=== PATIENT | female | born 1955 | race Caucasian/White ===

== ENCOUNTER → 2016-10-15 | Outpatient (CLI) | payer MEDICARE, MEDICAID | LOC: OD 11:42 | PROVIDERS: ATTEND Family Medicine | DX: E11.9 Type 2 diabetes mellitus without complications (principal) | CPT/HCPCS: 36415; 83036 ==

== ENCOUNTER → 2017-10-21 | Outpatient (CLI) | payer MEDICARE, MEDICAID ==
[2017-10-21 11:06] LABS: HEMOGLOBIN 19.5 g/dL (12.0-15.5); MEAN CORPUSCULAR HEMOGLOBIN 31.4 pg (27.0-33.4); MEAN CORPUSCULAR HGB CONC 33.2 g/dL (32.0-36.0); MEAN CORPUSCULAR VOLUME 95 fl (80-97); PLATELET COUNT 303 10^3/uL (150-450); RED CELL DISTRIBUTION WIDTH 14.8 % (11.5-14.0); WHITE BLOOD COUNT 11.1 10^3/uL (4.0-10.5)
[2017-10-21 11:09] LABS: HEMATOCRIT 58.7 % (36.0-47.0)
[2017-10-21 11:26] LABS: URINE AMPHETAMINES SCREEN NEGATIVE; URINE BARBITURATES SCREEN NEGATIVE; URINE BENZODIAZEPINES SCREEN NEGATIVE; URINE COCAINE SCREEN NEGATIVE; URINE MARIJUANA (THC) SCREEN NEGATIVE; URINE METHADONE SCREEN NEGATIVE; URINE PHENCYCLIDINE SCREEN NEGATIVE
[2017-10-21 11:44] LABS: ANION GAP 13 (5-19); BLOOD UREA NITROGEN 11 mg/dL (7-20); CALCIUM 9.8 mg/dL (8.4-10.2); CARBON DIOXIDE 32 mmol/L (22-30); CHLORIDE 97 mmol/L (98-107); CHOLESTEROL 130.87 mg/dL (0-200); GLUCOSE 144 mg/dL (75-110); POTASSIUM 4.7 mmol/L (3.6-5.0); SODIUM 141.8 mmol/L (137-145); TRIGLYCERIDES 112 mg/dL (<150)
[2017-10-21 11:54] LABS: DIRECT LDL 67 mg/dL (<100)
[2017-10-22 12:46] LABS: MICROALBUMIN RANDOM URINE 676.7 ug/mL (Not Estab.)
[2017-10-23 13:49] LABS: OXYCODONE/OXYMORPHONE UR Negative ng/mL (Cutoff=200)
== END ==
LOC: OD 09:46
PROVIDERS: ATTEND Family Medicine
DX: E11.9 Type 2 diabetes mellitus without complications (principal); E78.5 Hyperlipidemia, unspecified; I10 Essential (primary) hypertension; Z79.899 Other long term (current) drug therapy
CPT/HCPCS: 36415; 82607; 84443; 85027; 80048; 80307; 83036; 80361; 82306; 82043; 80061; G0480 ×2

== ENCOUNTER 2018-07-20 15:12 | Inpatient (IN) | payer MEDICARE, MEDICAID ==
--- NOTE | 2018-07-20 15:34 | ER Document Report ---
ED Respiratory Problem - General Stated Complaint: DIFFICULTY BREATHING Time Seen by Provider: 07/20/18 15:19 Mode of Arrival: Medic Information source: Patient Notes: Patient is a 62-year-old female with past medical history of hypertension, hyperlipidemia, yjc-zxhhjip-smbqcrmly diabetes, asthma and COPD. She presents to the emergency department today via EMS for complaint of respiratory distress and difficulty breathing. Patient reports she has had cough and congestion over the last several weeks with development of severe shortness of breath especially with ambulation. She now reports over the last couple weeks she has developed bilateral lower extremity swelling, denies any history of this before. On EMS arrival her initial O2 sats were 80% while she was sitting on the gave her a DuoNeb and Solu-Medrol 125 mg IV. Patient denies any fevers, nausea, vomiting or diarrhea. She reports her primary care doctor is Dr. Meraz. Impression TRAVEL OUTSIDE OF THE [place] IN LAST 30 DAYS: No - Related Data Allergies/Adverse Reactions: codeine Allergy (Verified 07/20/18 15:52) Latex, Natural Rubber Allergy (Verified 07/20/18 17:42) Penicillins Allergy (Verified 07/20/18 15:52) Past Medical History - General Information source: Patient - Social History Smoking Status: Current Every Day Smoker Frequency of alcohol use: None Drug Abuse: None Family History: Reviewed & Not Pertinent - Past Medical History Cardiac Medical History: Reports: Hx Hypercholesterolemia, Hx Hypertension Pulmonary Medical History: Reports: Hx Asthma, Hx COPD Endocrine Medical History: Reports: Hx Diabetes Mellitus Type 2 - Vab-frdvvyh-ciryzetif Past Surgical History: Reports: Hx Gynecologic Surgery Review of Systems - Review of Systems Constitutional: No symptoms reported. denies: Chills, Fever EENT: No symptoms reported Cardiovascular: Orthopnea, Dyspnea Respiratory: Cough, Short of breath, Sputum - White Gastrointestinal: No symptoms reported. denies: Diarrhea, Nausea, Vomiting Genitourinary: No symptoms reported Female Genitourinary: No symptoms reported Musculoskeletal: No symptoms reported Skin: No symptoms reported Hematologic/Lymphatic: No symptoms reported Neurological/Psychological: No symptoms reported Physical Exam - Vital signs Vitals: Pulse Ox 91 L 07/20/18 15:18 - Notes Notes: PHYSICAL EXAMINATION: GENERAL: Well-nourished and in no acute distress. HEAD: Atraumatic, normocephalic. EYES: Pupils equal round and reactive to light, extraocular movements intact, conjunctiva are normal. ENT: Nares patent, oropharynx clear without exudates. Moist mucous membranes. NECK: Normal range of motion, supple without lymphadenopathy LUNGS: Lung sounds diminished bilaterally with expiratory wheezes. HEART: Regular rate and rhythm without murmurs ABDOMEN: Soft, nontender, nondistended abdomen. No guarding, no rebound. No masses appreciated. Female : deferred Musculoskeletal: Normal range of motion, 3+ pitting edema. No cyanosis. NEUROLOGICAL: Cranial nerves grossly intact. Normal speech. Normal sensory, motor exams PSYCH: Normal mood, normal affect. SKIN: Warm, Dry, normal turgor, no rashes or lesions noted. Course - Re-evaluation Re-evalutation: At the time of arrival, patient currently has DuoNeb in progress that was started by EMS. Patient is already received Solu-Medrol 125 mg IV. Patient is awake, alert and able to answer questions although she is short of breath. Patient reports some improvement of her work of breathing after administration of medications by EMS. Physical examination reveals diminished lung sounds bilaterally with scattered wheezes on expiration. 3+ pitting edema to her bilateral lower extremities, patient denies any history of CHF. Will order additional breathing treatments, CBC, BMP, BNP, blood cultures, chest x-ray and EKG. Differentials include pneumonia, acute bronchitis, COPD exacerbation. CBC, BMP and BNP are relatively unremarkable. Chest x-ray reveals a right lower lobe infiltrate. Will start patient on IV Rocephin and IV azithromycin. Patient still having an oxygen requirement, nursing staff currently has patient on 5 L nasal cannula and O2 saturations are ranging between 90-91%. Will place orders for BiPAP. Hospitalist, Dr. Jericho Sevilla accepts patient for admission. Patient updated on plan of care and is agreeable to same. At the time of admission patient currently resting on the BiPAP and states she feels much improved. - Vital Signs Vital signs: Temp Pulse Resp BP Pulse Ox 26 H 131/76 H 89 L 07/20/18 19:01 07/20/18 20:00 07/20/18 20:01 - Laboratory Result Diagrams: 07/20/18 15:40 07/20/18 15:40 Laboratory results interpreted by me: 07/20/18 07/20/18 07/20/18 15:40 15:40 15:40 RBC 6.53 H Hgb 17.9 H Hct 56.1 H MCHC 31.9 L RDW 19.1 H Chloride 97 L Carbon Dioxide 33 H Glucose 130 H NT-Pro-B Natriuret Pep 945 H Discharge - Discharge Clinical Impression: Pneumonia Qualifiers: Pneumonia type: due to unspecified organism Laterality: right Lung location: lower lobe of lung Qualified Code(s): J18.1 - Lobar pneumonia, unspecified organism Condition: Stable Disposition: ADMITTED INPATIENT Admitting Provider: Hospitalist Unit Admitted: Medical Floor
[2018-07-20 16:03] LABS: ABSOLUTE LYMPHOCYTES (AUTO) 2.3 10^3/uL (0.5-4.7); ABSOLUTE MONOCYTES (AUTO) 0.8 10^3/uL (0.1-1.4); ABSOLUTE NEUT (AUTO) 4.5 10^3/uL (1.7-8.2); BASOPHILS % (AUTO) 0.5 % (0-2); EOSINOPHILS % (AUTO) 0.5 % (0-6); HEMOGLOBIN 17.9 g/dL (12.0-15.5); MEAN CORPUSCULAR HEMOGLOBIN 27.4 pg (27.0-33.4); MEAN CORPUSCULAR HGB CONC 31.9 g/dL (32.0-36.0); MEAN CORPUSCULAR VOLUME 86 fl (80-97); MONOCYTES % (AUTO) 10.9 % (3-13); PLATELET COUNT 240 10^3/uL (150-450); RED BLOOD COUNT 6.53 10^6/uL (3.72-5.28); RED CELL DISTRIBUTION WIDTH 19.1 % (11.5-14.0); SEGMENTED NEUTROPHILS % (AUTO) 58.1 % (42-78); TOTAL CELLS COUNTED % (AUTO) 100 %; WHITE BLOOD COUNT 7.7 10^3/uL (4.0-10.5)
[2018-07-20 16:06] LABS: HEMATOCRIT 56.1 % (36.0-47.0)
[2018-07-20] MEDS: ALBUTEROL SULFATE 0.083% NEB 2.5 MG/3 ML AMPUL NEB SCH ×2 (16:07→16:24)
[2018-07-20 16:27] LABS: ALANINE AMINOTRANSFERASE 17 U/L (9-52); ALBUMIN 3.6 g/dL (3.5-5.0); ALKALINE PHOSPHATASE 76 U/L (38-126); ANION GAP 10 (5-19); ASPARTATE AMINO TRANSFERASE 21 U/L (14-36); BILIRUBIN,DIRECT 0.4 mg/dL (0.0-0.4); BILIRUBIN,TOTAL 0.8 mg/dL (0.2-1.3); BLOOD UREA NITROGEN 16 mg/dL (7-20); CALCIUM 8.6 mg/dL (8.4-10.2); CARBON DIOXIDE 33 mmol/L (22-30); CHLORIDE 97 mmol/L (98-107); GLUCOSE 130 mg/dL (75-110); POTASSIUM 4.6 mmol/L (3.6-5.0); SODIUM 139.9 mmol/L (137-145); TOTAL PROTEIN 6.5 g/dL (6.3-8.2)
--- NOTE | 2018-07-20 16:38 | RADIOLOGY REPORT (SQ) ---
EXAM DESCRIPTION: CHEST SINGLE VIEW COMPLETED DATE/TIME: 07/20/2018 4:30 pm REASON FOR STUDY: shortness of breath COMPARISON: None. EXAM PARAMETERS: NUMBER OF VIEWS: One view. TECHNIQUE: Single frontal radiographic view of the chest acquired. RADIATION DOSE: NA LIMITATIONS: Positioning. Body habitus. FINDINGS: LUNGS AND PLEURA: Segmental airspace disease in the right lower lobe and middle lobe silho uetting the right heart border. Small right pleural effusion. Bandlike atelectasis or scarring in t he left lung. MEDIASTINUM AND HILAR STRUCTURES: No masses. Contour normal. HEART AND VASCULAR STRUCTURES: Heart normal in size. Normal vasculature. BONES: No acute findings. HARDWARE: None in the chest. OTHER: No other significant finding. IMPRESSION: Right lower lobe pneumonia. TECHNICAL DOCUMENTATION: JOB ID: [id number] [employer]- All Rights Reserved Reading location - IP/workstation name: [email or web address]
[2018-07-20] MEDS ORDERED: AZITHROMYCIN INJ 500 MG VIAL IV ONE (16:41)
[2018-07-20 17:50] LABS: A TYPE INFLUENZA AG NEGATIVE (NEGATIVE); B INFLUENZA AG NEGATIVE (NEGATIVE)
--- NOTE | 2018-07-20 17:54 | EKG REPORT ---
SEVERITY:- BORDERLINE ECG - SINUS TACHYCARDIA RIGHT AXIS DEVIATION BORDERLINE R WAVE PROGRESSION, ANTERIOR LEADS : Confirmed by: Alesha Farris MD 20-Jul-2018 17:54:14
[2018-07-20] MEDS ORDERED: CEFTRIAXONE 1 GM/D5W RTU 1 GM/50 ML RTUPB IV ONE (18:00)
[2018-07-20] MEDS ORDERED: HYDRALAZINE HCL INJ/PF 20 MG/1 ML SDV IV PRN (18:43)
--- NOTE | 2018-07-20 18:52 | PDOC H&P ---
History of Present Illness Admission Date/PCP: 07/20/18 18:10 OLE CARTY MD Patient complains of: SOB, leg swelling, cough History of Present Illness: NIGEL CALL is a 62 year old female with a past medical history of hypertension, hyperlipidemia, lgv-iqxzjzr-yrohjjsrc diabetes mellitus, and COPD not on home O2 who presented with increasing shortness of breath, bipedal edema and cough. Patient says that she has been having increasing shortness of breath in the past 2 months. She does have mild SOB from her COPD but is not oxygen dependent. As mentioned she says she noticed a gradual progression of her S OB in the past 2 months. She says she started developing increasing pedal edema on both legs 3 weeks ago. She reports a nonproductive cough the past month and mild orthopnea. Denies fever or chills. She denies previous diagnosis of CHF. Denies recent sick contacts. She was hypoxic when she was seen by EMS with a saturation of 80% on room air. She was initially on 4 600 nasal cannula but had persistent hypoxia hence was placed on BiPAP which improved her saturation to 93% upon encounter. She is not in distress upon my examination. Chest x-ray shows a right lower lobe pneumonia. Past Medical History Cardiac Medical History: Reports: Hyperlipidema, Hypertension Pulmonary Medical History: Reports: Asthma, Chronic Obstructive Pulmonary Disease (COPD) Endocrine Medical History: Reports: Diabetes Mellitus Type 2 - Xhi-zbuecoi-omztrtjqr Social History Smoking Status: Current Every Day Smoker Family History Family History: Reviewed & Not Pertinent Parental Family History Reviewed: Yes - no premature CAD Children Family History Reviewed: No Sibling(s) Family History Reviewed.: No Medication/Allergy Allergies/Adverse Reactions: codeine Allergy (Verified 07/20/18 15:52) Latex, Natural Rubber Allergy (Verified 07/20/18 17:42) Penicillins Allergy (Verified 07/20/18 15:52) Review of Systems All systems: reviewed and no additional remarkable complaints except as stated - as mentioned in HPI Physical Exam Vital Signs: Temp Pulse Resp BP Pulse Ox 26 H 147/82 H 91 L 07/20/18 17:01 07/20/18 17:00 07/20/18 17:01 Intake & Output 07/19/18 07/20/18 07/21/18 06:59 06:59 06:59 Weight 275 lb General appearance: PRESENT: no acute distress, well-developed, well-nourished Head exam: PRESENT: atraumatic, normocephalic Eye exam: PRESENT: conjunctiva pink, EOMI, PERRLA. ABSENT: scleral icterus Ear exam: PRESENT: normal external ear exam Mouth exam: PRESENT: moist, tongue midline Neck exam: ABSENT: carotid bruit, JVD, lymphadenopathy, thyromegaly Respiratory exam: PRESENT: rales - right to mid base. ABSENT: rhonchi, wheezes Cardiovascular exam: PRESENT: RRR. ABSENT: diastolic murmur, rubs, systolic murmur Pulses: PRESENT: normal dorsalis pedis pul GI/Abdominal exam: PRESENT: normal bowel sounds, soft. ABSENT: distended, guarding, mass, organolmegaly, rebound, tenderness Extremities exam: PRESENT: +2 edema Results Laboratory Results: 07/20/18 15:40 07/20/18 15:40 07/20/18 07/20/18 15:40 15:40 WBC 7.7 RBC 6.53 H Hgb 17.9 H Hct 56.1 H MCV 86 MCH 27.4 MCHC 31.9 L RDW 19.1 H Plt Count 240 Seg Neutrophils % 58.1 Lymphocytes % 30.0 Monocytes % 10.9 Eosinophils % 0.5 Basophils % 0.5 Absolute Neutrophils 4.5 Absolute Lymphocytes 2.3 Absolute Monocytes 0.8 Absolute Eosinophils 0.0 Absolute Basophils 0.0 Sodium 139.9 Potassium 4.6 Chloride 97 L Carbon Dioxide 33 H Anion Gap 10 BUN 16 Creatinine 0.62 Est GFR ( Amer) > 60 Est GFR (Non-Af Amer) > 60 Glucose 130 H Calcium 8.6 Total Bilirubin 0.8 AST 21 ALT 17 Alkaline Phosphatase 76 Total Protein 6.5 Albumin 3.6 07/20/18 15:40 NT-Pro-B Natriuret Pep 945 H Impressions: Chest X-Ray 07/20/18 15:27 IMPRESSION: Right lower lobe pneumonia. Assessment & Plan - Diagnosis (1) Acute respiratory failure with hypoxia Is this a current diagnosis for this admission?: Yes Plan: Secondary to community-acquired pneumonia. There is a question of a new onset CHF as patient is also presenting with increasing shortness of breath, orthopnea and bipedal edema. She is currently saturating 98% on BiPAP. (2) Pneumonia Qualifiers: Pneumonia type: due to unspecified organism Laterality: right Lung loc ation: lower lobe of lung Qualified Code(s): J18.1 - Lobar pneumonia, unspecified organism Is this a current diagnosis for this admission?: Yes Plan: Continue Rocephin and azithromycin. Will order for sputum culture. Flu testing was negative. (3) Hypertension Is this a current diagnosis for this admission?: Yes Plan: Patient takes amlodipine, losartan and hydrochlorothiazide at home. Will discontinue amlodipine due to pedal edema. - Time Time Spent: 30 to 50 Minutes
[2018-07-20] MEDS: IPRATROPIUM/ALBUTEROL 0.5-2.5 MG/3 ML AMPUL NEB SCH (21:28)
[2018-07-20] MEDS: ACETYLCYSTEINE 10% NEB 400 MG/4 ML VIAL NEB SCH (21:29)
[2018-07-20] MEDS: FUROSEMIDE INJ/PF 20 MG/2 ML SDV IV SCH (22:21)
--- NOTE | 2018-07-20 22:50 | RADIOLOGY REPORT (SQ) ---
EXAM DESCRIPTION: CT CHEST WITHOUT IV CONTRAST COMPLETED DATE/TME: 07/20/2018 18:38 CLINICAL HISTORY: 62 years Female, hypoxia,RLL PNA,r/o post obstructive PNA Comparison: None. Technique: No contrast. Coronal and sagittal reformat. This exam was performed according to our departmental dose-optimization program, which includes automated exposure control, adjustment of the mA and/or kV according to patient size and/or use of iterative reconstruction technique. [facility]: Dose Right [facility]: CareDose [facility]: Dose Right [facility]: Teradose 4D [facility]: Mogotest LIMITATIONS: None Findings: Small -moderate consolidation of the right lower lobe. Moderate right pleural effusion. Small strandy opacity of the left lower lobe may indicate atelectasis or early pneumonia. Lobulated liver contour may indicate cirrhosis. Bilateral perinephric fat stranding, nonspecific. Coronary arterial calcification. Atherosclerotic vascular disease. Unenhanced inferior neck, axillae, mediastinum, lungs, airway, lymphatics, heart, vasculature, upper abdomen, and musculoskeleton appear otherwise unremarkable. Impression: 1. Right lower lobar pneumonia. Moderate right effusion. Recommend CR/CT surveillance including at 7-12 weeks following initiation of any clinically warranted therapy. 2. Possible cirrhosis.
[2018-07-21] MEDS ORDERED: ATORVASTATIN CALCIUM 20 MG TABLET PO ONE (00:30)
[2018-07-21] MEDS: ACETYLCYSTEINE 10% NEB 400 MG/4 ML VIAL NEB SCH ×4 (01:50→21:02)
[2018-07-21] MEDS: IPRATROPIUM/ALBUTEROL 0.5-2.5 MG/3 ML AMPUL NEB SCH ×4 (01:50→21:02)
[2018-07-21] MEDS ORDERED: HYDROCHLOROTHIAZIDE 25 MG TABLET PO SCH (08:00)
[2018-07-21] MEDS: FONDAPARINUX SODIUM INJ 2.5 MG/0.5 ML DISP.SYRIN SUBCUT SCH (09:10)
[2018-07-21] MEDS ORDERED: LOSARTAN POTASSIUM 50 MG TABLET PO SCH (10:00)
[2018-07-21] MEDS: ASPIRIN 81 MG TABLET, ENT COATED PO SCH (10:23)
[2018-07-21] MEDS: FUROSEMIDE INJ/PF 20 MG/2 ML SDV IV SCH (10:28)
[2018-07-21] MEDS: AZITHROMYCIN 250 MG TABLET PO SCH (13:10)
[2018-07-21 16:22] LABS: ARTERIAL BLOOD BASE EXCESS 4.3 mmol/L; ARTERIAL BLOOD H2CO3 2.81 mmol/L (1.05-1.35); ARTERIAL BLOOD HCO3 36.5 mmol/L (20-24); ARTERIAL BLOOD O2 SATURATION 87.5 % (94-98); ARTERIAL BLOOD PH 7.21 (7.35-7.45); ARTERIAL BLOOD PO2 66.3 mmHg (80-100); ARTERIAL BLOOD TOTAL CO2 39.4 mmol/L (21-25)
[2018-07-21 16:31] LABS: ARTERIAL BLOOD FIO2 70%
[2018-07-21 16:32] LABS: ARTERIAL BLOOD PCO2 93.4 mmHg (35-45)
[2018-07-21] MEDS: CEFTRIAXONE 1 GM/D5W RTU 1 GM/50 ML RTUPB IV SCH (17:16)
[2018-07-21 18:11] LABS: ARTERIAL BLOOD BASE EXCESS 7.2 mmol/L; ARTERIAL BLOOD H2CO3 3.01 mmol/L (1.05-1.35); ARTERIAL BLOOD HCO3 39.9 mmol/L (20-24); ARTERIAL BLOOD O2 SATURATION 89.8 % (94-98); ARTERIAL BLOOD PH 7.22 (7.35-7.45); ARTERIAL BLOOD PO2 71.3 mmHg (80-100)
[2018-07-21 18:12] LABS: ARTERIAL BLOOD FIO2 70%
[2018-07-21 18:51] LABS: INTERNATIONAL RATION (INR) 1.06; PROTHROMBIN TIME 14.3 SEC (11.4-15.4)
--- NOTE | 2018-07-21 19:23 | PDOC PROGRESS REPORT ---
Subjective Progress Note for:: 07/21/18 Subjective:: NIGEL CALL is a 62 year old female with a past medical history of hypertension, hyperlipidemia, chw-adajnpf-wxpgmukee diabetes mellitus, and COPD not on home O2 who presented with increasing shortness of breath, bipedal edema and cough. She was requiring BIPAP and was found to have a right sided pneumonia and was admitted for acute hypoxic respiratory failure. Patient this morning says her breathing feels slightly better. She was off BIPAP for 4 hrs. Later this afternoon, she desaturated to low 80s. She was not in distress. She was moved to the ICU where ABG was drawn and showed acute on chronic hypercarbia with PCO of 100. She is comfortable on BIPAP. She is fully awake and well oriented x 4. No mental status changes at this time. Discussed possibilityof intubation if her breathing decompensates or if she has mental status changes. Reason For Visit: ACUTE HYPOXIC RESPIRATORY FAILURE Physical Exam Vital Signs: Temp Pulse Resp BP Pulse Ox 97.0 F 101 H 19 116/71 94 07/21/18 18:00 07/21/18 18:42 07/21/18 18:42 07/21/18 18:42 07/21/18 18:42 Intake & Output 07/20/18 07/21/18 07/22/18 06:59 06:59 06:59 Intake Total 250 786 Output Total 0 100 Balance 250 686 Weight 304 lb 10.861 oz General appearance: PRESENT: no acute distress, well-developed, well-nourished Head exam: PRESENT: atraumatic, normocephalic Eye exam: PRESENT: conjunctiva pink, EOMI, PERRLA. ABSENT: scleral icterus Ear exam: PRESENT: normal external ear exam Neck exam: ABSENT: carotid bruit, JVD, lymphadenopathy, thyromegaly Respiratory exam: PRESENT: clear to auscultation ba, rales - right base. ABSENT: rhonchi, wheezes Cardiovascular exam: PRESENT: RRR. ABSENT: diastolic murmur, rubs, systolic murmur Pulses: PRESENT: normal dorsalis pedis pul GI/Abdominal exam: PRESENT: normal bowel sounds, soft. ABSENT: distended, guarding, mass, organolmegaly, rebound, tenderness Rectal exam: PRESENT: deferred Extremities exam: PRESENT: +2 edema Neurological exam: PRESENT: alert, awake, oriented to person, oriented to place, oriented to time, oriented to situation, CN II-XII grossly intact. ABSENT: motor sensory deficit Results Laboratory Results: 07/20/18 15:40 07/20/18 15:40 07/21/18 07/21/18 15:51 17:56 Carbonic Acid 2.81 H 3.01 H HCO3/H2CO3 Ratio 12:1 13:1 ABG pH 7.21 L 7.22 L ABG pCO2 93.4 H* 100.0 H* ABG pO2 66.3 L 71.3 L ABG HCO3 36.5 H 39.9 H ABG O2 Saturation 87.5 L 89.8 L ABG Base Excess 4.3 7.2 FiO2 70% 70% 07/20/18 15:40 NT-Pro-B Natriuret Pep 945 H Impressions: Chest X-Ray 07/20/18 15:27 IMPRESSION: Right lower lobe pneumonia. Assessment & Plan - Diagnosis (1) Acute respiratory failure with hypoxia Is this a current diagnosis for this admission?: Yes Plan: Secondary to community-acquired pneumonia. 07/20: She was off BIPAP for 4 hrs. Later this afternoon, she desaturated to low 80s. She was not in distress. She was moved to the ICU where ABG was drawn and showed acute on chronic hypercarbia with PCO2 of 100. She is comfortable on BIPAP. She is fully awake and well oriented x 4. No mental status changes at this time. Discussed possibility of intubation if her breathing decompensates or if she has mental status changes. Increase BIPAP settings to 16/8/70%. Will also consult pulmonology. (2) Acute and chronic respiratory failure with hypercapnia Is this a current diagnosis for this admission?: Yes Plan: She is not on home O2 but does admit she has not been compliance with ff-up and has not been assessed for need for home O2. ABG is suggestive of chronic CO2 retention as well. (3) Pneumonia Qualifiers: Pneumonia type: due to unspecified organism Laterality: right Lung location: lower lobe of lung Qualified Code(s): J18.1 - Lobar pneumonia, unspecified organism Is this a current diagnosis for this admission?: Yes Plan: Continue Rocephin and azithromycin. Sputum culture pending. Flu testing was negative. (4) Hypertension Is this a current diagnosis for this admission?: Yes Plan: Patient takes amlodipine, losartan and hydrochlorothiazide at home. Will discontinue amlodipine due to pedal edema. (5) Pleural effusion Is this a current diagnosis for this admission?: Yes Plan: Right sided possible para pneumonic. Consulted radiology for possible thoracentesis. (6) Cirrhosis Is this a current diagnosis for this admission?: Yes - Time Time Spent with patient: 35 or more minutes
[2018-07-21] MEDS: METHYLPREDNISOLONE INJ 40 MG/1 ML SDV IV SCH (21:05)
[2018-07-21] MEDS: ATORVASTATIN CALCIUM 20 MG TABLET PO SCH (21:05)
[2018-07-21] MEDS ORDERED: DILTIAZEM HCL 30 MG TABLET PO ONE (23:59)
[2018-07-22] MEDS ORDERED: DEXTROSE 5%-WATER 250 ML with NOREPINEPHRINE BITARTRATE 4 MG IV PRN ×2 (00:01)
[2018-07-22] MEDS ORDERED: NOREPINEPHRINE BITARTRATE INJ/PF 4 MG/4 ML SDV IV ONE (00:07)
[2018-07-22] MEDS ORDERED: NORMAL SALINE 500 ML IV ONE (00:15)
[2018-07-22] MEDS ORDERED: ACETYLCYSTEINE 10% NEB 400 MG/4 ML VIAL ONE (02:19)
[2018-07-22] MEDS: ACETYLCYSTEINE 10% NEB 400 MG/4 ML VIAL NEB SCH ×4 (02:27→23:57)
[2018-07-22] MEDS: IPRATROPIUM/ALBUTEROL 0.5-2.5 MG/3 ML AMPUL NEB SCH ×4 (02:27→19:57)
[2018-07-22 04:34] LABS: ARTERIAL BLOOD BASE EXCESS 6.5 mmol/L; ARTERIAL BLOOD H2CO3 2.75 mmol/L (1.05-1.35); ARTERIAL BLOOD HCO3 38.3 mmol/L (20-24); ARTERIAL BLOOD O2 SATURATION 92.5 % (94-98); ARTERIAL BLOOD PH 7.24 (7.35-7.45); ARTERIAL BLOOD PO2 78.1 mmHg (80-100); ARTERIAL BLOOD TOTAL CO2 41.1 mmol/L (21-25)
[2018-07-22 04:35] LABS: ARTERIAL BLOOD FIO2 70%
[2018-07-22 04:36] LABS: ARTERIAL BLOOD PCO2 91.4 mmHg (35-45)
[2018-07-22 04:38] LABS: ANION GAP 6 (5-19); BLOOD UREA NITROGEN 15 mg/dL (7-20); CALCIUM 8.7 mg/dL (8.4-10.2); CARBON DIOXIDE 37 mmol/L (22-30); CHLORIDE 96 mmol/L (98-107); GLUCOSE 198 mg/dL (75-110); POTASSIUM 4.5 mmol/L (3.6-5.0); SODIUM 138.6 mmol/L (137-145)
[2018-07-22 04:51] LABS: ABSOLUTE MONOCYTES (AUTO) 0.2 10^3/uL (0.1-1.4); ABSOLUTE NEUT (AUTO) 6.6 10^3/uL (1.7-8.2); BASOPHILS % (AUTO) 0.1 % (0-2); HEMATOCRIT 52.5 % (36.0-47.0); HEMOGLOBIN 16.4 g/dL (12.0-15.5); LYMPHOCYTES % (AUTO) 12.6 % (13-45); MEAN CORPUSCULAR HEMOGLOBIN 27.3 pg (27.0-33.4); MEAN CORPUSCULAR HGB CONC 31.3 g/dL (32.0-36.0); MEAN CORPUSCULAR VOLUME 87 fl (80-97); MONOCYTES % (AUTO) 3.1 % (3-13); PLATELET COUNT 202 10^3/uL (150-450); RED BLOOD COUNT 6.03 10^6/uL (3.72-5.28); RED CELL DISTRIBUTION WIDTH 19.6 % (11.5-14.0); SEGMENTED NEUTROPHILS % (AUTO) 84.2 % (42-78); TOTAL CELLS COUNTED % (AUTO) 100 %; WHITE BLOOD COUNT 7.8 10^3/uL (4.0-10.5)
[2018-07-22] MEDS: METHYLPREDNISOLONE INJ 40 MG/1 ML SDV IV SCH ×2 (05:41→17:31)
[2018-07-22] MEDS: FONDAPARINUX SODIUM INJ 2.5 MG/0.5 ML DISP.SYRIN SUBCUT SCH (08:38)
[2018-07-22] MEDS: ASPIRIN 81 MG TABLET, ENT COATED PO SCH (09:51)
[2018-07-22] MEDS ORDERED: FUROSEMIDE INJ/PF 20 MG/2 ML SDV IV SCH (10:00)
--- NOTE | 2018-07-22 13:15 | RADIOLOGY REPORT (SQ) ---
EXAM DESCRIPTION: U/S THORACENTESIS WITH IMAGING COMPLETED DATE/TIME: 07/22/2018 12:58 pm REASON FOR STUDY: pleural effusion, hypoxia COMPARISON: CT chest 07/20/2018 Chest films 07/20/2018 LIMITATIONS: None. PROCEDURE: Procedure, risks, benefit, and alternative explained to patient who then gave written con sent. The posterior right chest wall was marked using ultrasound guidance. A time-out was called fo r correct marking verification. Chest prepped and draped using sterile technique. Local anesthesia a chieved using 7 ml of 1% lidocaine injection. A 6fr Safe-T- Centesis set was introduced into the rig ht pleural space. Fluid was aspirated. The catheter was removed and the entry site was covered with sterile bandage. No immediate complications noted. Images acquired during the procedure were stored on PACS. FINDINGS: ENTRY SITE: Posterior right chest FLUID VOLUME: 550 mL of clear straw-colored fluid FLUID ANALYSIS: Sent for testing OTHER: Fluid sent to the lab for testing. IMPRESSION: SUCCESSFUL THORACENTESIS USING ULTRASOUND GUIDANCE. COMMENT: Patient medication list reviewed: Yes- Quality ID# [id number]:Eligible professional attests to doc umenting in the medical record they obtained, updated, or reviewed the patient's current medications. TECHNICAL DOCUMENTATION: JOB ID: [id number] [employer]- All Rights Reserved Reading location - IP/workstation name: [email or web address]
[2018-07-22 13:42] LABS: FLUID TYPE PLEURAL
[2018-07-22 13:43] LABS: FLUID APPEARANCE SLIGHTLY HAZY; FLUID COLOR YELLOW; FLUID SOURCE LUNG; FLUID VISCOSITY LIQUID
--- NOTE | 2018-07-22 14:06 | RADIOLOGY REPORT (SQ) ---
EXAM DESCRIPTION: CHEST SINGLE VIEW COMPLETED DATE/TIME: 07/22/2018 1:55 pm REASON FOR STUDY: post thoracentesis COMPARISON: 07/20/2018 EXAM PARAMETERS: NUMBER OF VIEWS: One view. TECHNIQUE: Single frontal radiographic view of the chest acquired. RADIATION DOSE: NA LIMITATIONS: None. FINDINGS: LUNGS AND PLEURA: Immediate post right thoracentesis with removal of 450 mL of fluid from the right pleural space. No pneumothorax. Persistent right retrocardiac consolidation atelectasis versus pneumonia. Persistent pleural thicken ing in the right lateral costophrenic sulcus. On the left side, there is bandlike atelectasis in the mid lung, unchanged. No left pleural effusion or pneumothorax MEDIASTINUM AND HILAR STRUCTURES: No masses. Contour normal. HEART AND VASCULAR STRUCTURES: Stable marked cardiomegaly BONES: No acute findings. HARDWARE: None in the chest. OTHER: No other significant finding. IMPRESSION: No pneumothorax post right thoracentesis TECHNICAL DOCUMENTATION: JOB ID: [id number] [employer]- All Rights Reserved Reading location - IP/workstation name: [email or web address]
[2018-07-22] MEDS: AZITHROMYCIN 250 MG TABLET PO SCH (14:55)
[2018-07-22 14:58] LABS: ARTERIAL BLOOD BASE EXCESS 6.8 mmol/L; ARTERIAL BLOOD H2CO3 2.66 mmol/L (1.05-1.35); ARTERIAL BLOOD HCO3 38.1 mmol/L (20-24); ARTERIAL BLOOD O2 SATURATION 93.3 % (94-98); ARTERIAL BLOOD PH 7.25 (7.35-7.45); ARTERIAL BLOOD PO2 80.2 mmHg (80-100); ARTERIAL BLOOD TOTAL CO2 40.8 mmol/L (21-25)
[2018-07-22 15:02] LABS: ARTERIAL BLOOD FIO2 70%; ARTERIAL BLOOD PCO2 88.5 mmHg (35-45)
--- NOTE | 2018-07-22 15:31 | RADIOLOGY REPORT (SQ) ---
EXAM DESCRIPTION: CHEST SINGLE VIEW COMPLETED DATE/TIME: 07/22/2018 3:18 pm REASON FOR STUDY: post thoracentesis 2 hour post procedure film COMPARISON: 07/22/2018, 1330 hours EXAM PARAMETERS: NUMBER OF VIEWS: One view. TECHNIQUE: Single frontal radiographic view of the chest acquired. RADIATION DOSE: NA LIMITATIONS: None. FINDINGS: LUNGS AND PLEURA: 2 hours post right thoracentesis. No pneumothorax. Persistent consolidation in the right retrocardiac region atelectasis versus pneumonia with trace res idual right pleural fluid or pleural thickening. Bandlike airspace disease left lower lobe. These f indings are unchanged prior study. MEDIASTINUM AND HILAR STRUCTURES: No masses. Contour normal. HEART AND VASCULAR STRUCTURES: Stable cardiomegaly BONES: No acute findings. HARDWARE: None in the chest. OTHER: No other significant finding. IMPRESSION: No pneumothorax 2 hours post right thoracentesis Persistent right retrocardiac consolidation TECHNICAL DOCUMENTATION: JOB ID: [id number] [employer]- All Rights Reserved Reading location - IP/workstation name: [email or web address]
--- NOTE | 2018-07-22 15:50 | PDOC CONSULTATION ---
Consultation Consult Date: 07/22/18 Attending physician:: FRANCES WU Consult reason:: Acute/chronic resp failure History of Present Illness Admission Date/PCP: 07/20/18 18:10 OLE CARTY MD History of Present Illness: NIGEL CALL is a 62 year old female with increasing shortness of breath that has been progressively worse after the last 2-3 weeks cranial cough productive of yellow phlegm no hemoptysis nausea vomiting fevers or chills he has a history of hyper tension coronary artery disease and obesity. Smoking a pack a day for the last 53 years admits to being exposed large amounts of passive smoke as a child as well as an adult she has no occupational exposures to sick potential respiratory toxins. NO recent travel no angina-like chest pain sleeps in a hospital bed approximately 45 degrees rare PND rare nocturnal cough chronic edema particular over the last 3 weeks she is aware of snoring admits to restless sleep nocturia 2-3 times per night unrestful sleep and excessive daytime somnolence. Past Medical History Cardiac Medical History: Reports: Hyperlipidema, Hypertension Pulmonary Medical History: Reports: Asthma, Chronic Obstructive Pulmonary Disease (COPD) Endocrine Medical History: Reports: Diabetes Mellitus Type 2 - [id number] Social History Information Source: Patient, [facility] Records Smoking Status: Current Every Day Smoker Cigarettes Packs Per Day: 1 Number of Years Smokin Passive smoke exposure as: Both Frequency of Alcohol Use: None Drugs: None Hx Prescription Drug Abuse: No Do you have pets?: No Have you had any respiratory illnesses as a child?: No Have you been exposed to any sick contacts recently?: No Have you had any recent respiratory illnesses?: No Have you travelled outside of [place] in the past 12 months?: No Family History Parental Family History Reviewed: No Children Family History Reviewed: No Sibling(s) Family History Reviewed.: No Medication/Allergy Home Medications: Amlodipine Besylate [Norvasc 5 mg Tablet] 5 mg PO QHS 07/20/18 Aspirin [Adult Aspirin] 81 mg PO DAILY 07/20/18 Atorvastatin Calcium [Lipitor 20 mg Tablet] 20 mg PO QHS 07/20/18 Hydrochlorothiazide [Hydrodiuril 25 mg Tablet] 25 mg PO QAM 07/20/18 Losartan Potassium [Cozaar 100 mg Tablet] 100 mg PO DAILY 07/20/18 Metformin HCl [Glucophage 500 mg Tablet] 1,000 mg PO BID 07/20/18 Allergies/Adverse Reactions: codeine Allergy (Verified 07/20/18 15:52) Latex, Natural Rubber Allergy (Verified 07/20/18 17:42) Penicillins Allergy (Verified 07/20/18 15:52) Review of Systems ROS unobtainable: Due to mental status Physical Exam Vital Signs: Temp Pulse Resp BP Pulse Ox 97.5 F 99 22 H 126/74 H 92 07/22/18 10:00 07/22/18 10:00 07/22/18 10:34 07/22/18 10:34 07/22/18 10:34 Intake & Output 07/21/18 07/22/18 07/23/18 06:59 06:59 06:59 Intake Total 250 1409 1 Output Total 0 450 500 Balance 250 959 -499 Weight 138.2 kg 140.1 kg General appearance: PRESENT: cooperative, disheveled, mild distress, morbidly obese Head exam: PRESENT: atraumatic, normocephalic Eye exam: PRESENT: conjunctiva pale, EOMI. ABSENT: nystagmus Mouth exam: PRESENT: dry mucosa, neck supple, tongue midline Neck exam: ABSENT: carotid bruit, JVD, lymphadenopathy, thyromegaly, tracheal deviation, tracheostomy Respiratory exam: PRESENT: decreased breath sounds, prolonged expiratory phas, rales, rhonchi, unlabored, wheezes. ABSENT: retraction, stridor Cardiovascular exam: PRESENT: irregular rhythm Pulses: PRESENT: normal radial pulses GI/Abdominal exam: PRESENT: soft. ABSENT: tenderness Extremities exam: PRESENT: +1 edema. ABSENT: calf tenderness, clubbing, joint swelling, tenderness Musculoskeletal exam: ABSENT: deformity, dislocation Neurological exam: PRESENT: awake Psychiatric exam: PRESENT: appropriate affect Skin exam: PRESENT: dry. ABSENT: normal color Results Laboratory Results: 07/22/18 03:53 07/22/18 03:53 07/21/18 07/21/18 07/22/18 15:51 17:56 03:53 WBC 7.8 RBC 6.03 H Hgb 16.4 H Hct 52.5 H MCV 87 MCH 27.3 MCHC 31.3 L RDW 19.6 H Plt Count 202 Seg Neutrophils % 84.2 H Lymphocytes % 12.6 L Monocytes % 3.1 Eosinophils % 0.0 Basophils % 0.1 Absolute Neutrophils 6.6 Absolute Lymphocytes 1.0 Absolute Monocytes 0.2 Absolute Eosinophils 0.0 Absolute Basophils 0.0 Carbonic Acid 2.81 H 3.01 H HCO3/H2CO3 Ratio 12:1 13:1 ABG pH 7.21 L 7.22 L ABG pCO2 93.4 H* 100.0 H* ABG pO2 66.3 L 71.3 L ABG HCO3 36.5 H 39.9 H ABG O2 Saturation 87.5 L 89.8 L ABG Base Excess 4.3 7.2 FiO2 70% 70% Sodium Potassium Chloride Carbon Dioxide Anion Gap BUN Creatinine Est GFR ( Amer) Est GFR (Non-Af Amer) Glucose Calcium Magnesium 07/22/18 07/22/18 03:53 04:27 WBC RBC Hgb Hct MCV MCH MCHC RDW Plt Count Seg Neutrophils % Lymphocytes % Monocytes % Eosinophils % Basophils % Absolute Neutrophils Absolute Lymphocytes Absolute Monocytes Absolute Eosinophils Absolute Basophils Carbonic Acid 2.75 H HCO3/H2CO3 Ratio 13:1 ABG pH 7.24 L ABG pCO2 91.4 H* ABG pO2 78.1 L ABG HCO3 38.3 H ABG O2 Saturation 92.5 L ABG Base Excess 6.5 FiO2 70% Sodium 138.6 Potassium 4.5 Chloride 96 L Carbon Dioxide 37 H Anion Gap 6 BUN 15 Creatinine 0.64 Est GFR ( Amer) > 60 Est GFR (Non-Af Amer) > 60 Glucose 198 H Calcium 8.7 Magnesium 1.6 07/20/18 15:40 NT-Pro-B Natriuret Pep 945 H Impressions: Chest X-Ray 07/20/18 15:27 IMPRESSION: Right lower lobe pneumonia. Assessment & Plan - Diagnosis (1) Acute and chronic respiratory failure with hypercapnia Is this a current diagnosis for this admission?: Yes Plan: Increase inspiratory pressure try to improve minute ventilation preserved pH (2) Acute respiratory failure with hypoxia Is this a current diagnosis for this admission?: Yes Plan: Down FiO2 as tolerated (3) Hypertension Is this a current diagnosis for this admission?: Yes Plan: Stable at this time (4) Pleural effusion Is this a current diagnosis for this admission?: Yes Plan: Thoracentesis in progress (5) Pneumonia Qualifiers: Pneumonia type: due to unspecified organism Laterality: right Lung location: lower lobe of lung Qualified Code(s): J18.1 - Lobar pneumonia, unspecified organism Is this a current diagnosis for this admission?: Yes Plan: Is community-acquired specimens pending - Time Total Critical Time (Minutes): 55
[2018-07-22] MEDS: CEFTRIAXONE 1 GM/D5W RTU 1 GM/50 ML RTUPB IV SCH (17:31)
--- NOTE | 2018-07-22 18:07 | PDOC PROGRESS REPORT ---
Subjective Progress Note for:: 07/22/18 Subjective:: NIGEL CALL is a 62 year old female with a past medical history of hypertension, hyperlipidemia, jdd-jckrjla-paiwsinna diabetes mellitus, and COPD not on home O2 who presented with increasing shortness of breath, bipedal edema and cough. She was requiring BIPAP and was found to have a right sided pneumonia and was admitted for acute hypoxic respiratory failure. 07/21: Patient this morning says her breathing feels slightly better. She was off BIPAP for 4 hrs. Later this afternoon, she desaturated to low 80s. She was not in distress. She was moved to the ICU where ABG was drawn and showed acute on chronic hypercarbia with PCO of 100. She is comfortable on BIPAP. She is fully awake and well oriented x 4. No mental status changes at this time. Discussed possibility of intubation if her breathing decompensates or if she has mental status changes. 07/22: Patient's respiratory status did not deteriorate overnight. She is maintaining good saturation on BIPAP. No mental status changes despite significantly elevated PCO2. She did drop her blood pressure overnight and required low dose Levophed. Lasix was also DCed. She just had a right sided thoracenteisis and had 550 cc drained. She tolerated the procedure well. She says her SOB has slightly improved. Denies chest pain. Reason For Visit: ACUTE HYPOXIC RESPIRATORY FAILURE Physical Exam Vital Signs: Temp Pulse Resp BP Pulse Ox 98.1 F 104 H 20 92/61 L 89 L 07/22/18 16:00 07/22/18 16:00 07/22/18 16:00 07/22/18 16:00 07/22/18 16:00 Intake & Output 07/21/18 07/22/18 07/23/18 06:59 06:59 06:59 Intake Total 250 1409 225 Output Total 0 450 500 Balance 250 959 -275 Weight 304 lb 10.861 oz 308 lb 13.882 oz 308 lb 13.882 oz General appearance: PRESENT: no acute distress, well-developed, well-nourished Head exam: PRESENT: atraumatic, normocephalic Eye exam: PRESENT: conjunctiva pink, EOMI, PERRLA. ABSENT: scleral icterus Ear exam: PRESENT: normal external ear exam Mouth exam: PRESENT: moist, tongue midline Neck exam: ABSENT: carotid bruit, JVD, lymphadenopathy, thyromegaly Respiratory exam: PRESENT: rhonchi. ABSENT: rales, wheezes Cardiovascular exam: PRESENT: RRR. ABSENT: diastolic murmur, rubs, systolic murmur Pulses: PRESENT: normal dorsalis pedis pul GI/Abdominal exam: PRESENT: normal bowel sounds, soft. ABSENT: distended, guarding, mass, organolmegaly, rebound, tenderness Rectal exam: PRESENT: deferred Extremities exam: PRESENT: +2 edema Neurological exam: PRESENT: alert, awake, oriented to person, oriented to place, oriented to time, oriented to situation, CN II-XII grossly intact. ABSENT: motor sensory deficit Results Laboratory Results: 07/22/18 03:53 07/22/18 03:53 07/21/18 07/22/18 07/22/18 17:56 03:53 03:53 WBC 7.8 RBC 6.03 H Hgb 16.4 H Hct 52.5 H MCV 87 MCH 27.3 MCHC 31.3 L RDW 19.6 H Plt Count 202 Seg Neutrophils % 84.2 H Lymphocytes % 12.6 L Monocytes % 3.1 Eosinophils % 0.0 Basophils % 0.1 Absolute Neutrophils 6.6 Absolute Lymphocytes 1.0 Absolute Monocytes 0.2 Absolute Eosinophils 0.0 Absolute Basophils 0.0 Carbonic Acid 3.01 H HCO3/H2CO3 Ratio 13:1 ABG pH 7.22 L ABG pCO2 100.0 H* ABG pO2 71.3 L ABG HCO3 39.9 H ABG O2 Saturation 89.8 L ABG Base Excess 7.2 FiO2 70% Sodium 138.6 Potassium 4.5 Chloride 96 L Carbon Dioxide 37 H Anion Gap 6 BUN 15 Creatinine 0.64 Est GFR ( Amer) > 60 Est GFR (Non-Af Amer) > 60 Glucose 198 H Calcium 8.7 Magnesium 1.6 Total Protein Fluid Type Fluid Source Fluid Color Fluid Appearance Fluid Viscosity Fluid WBC Fluid RBC 07/22/18 07/22/18 07/22/18 04:27 12:25 12:25 WBC RBC Hgb Hct MCV MCH MCHC RDW Plt Count Seg Neutrophils % Lymphocytes % Monocytes % Eosinophils % Basophils % Absolute Neutrophils Absolute Lymphocytes Absolute Monocytes Absolute Eosinophils Absolute Basophils Carbonic Acid 2.75 H HCO3/H2CO3 Ratio 13:1 ABG pH 7.24 L ABG pCO2 91.4 H* ABG pO2 78.1 L ABG HCO3 38.3 H ABG O2 Saturation 92.5 L ABG Base Excess 6.5 FiO2 70% Sodium Potassium Chloride Carbon Dioxide Anion Gap BUN Creatinine Est GFR ( Amer) Est GFR (Non-Af Amer) Glucose Calcium Magnesium Total Protein Cancelled Fluid Type PLEURAL Fluid Source LUNG Fluid Color YELLOW Fluid Appearance SLIGHTLY HAZY Fluid Viscosity LIQUID Fluid WBC 468 Fluid RBC 473 07/22/18 14:40 WBC RBC Hgb Hct MCV MCH MCHC RDW Plt Count Seg Neutrophils % Lymphocytes % Monocytes % Eosinophils % Basophils % Absolute Neutrophils Absolute Lymphocytes Absolute Monocytes Absolute Eosinophils Absolute Basophils Carbonic Acid 2.66 H HCO3/H2CO3 Ratio 14:1 ABG pH 7.25 L ABG pCO2 88.5 H* ABG pO2 80.2 ABG HCO3 38.1 H ABG O2 Saturation 93.3 L ABG Base Excess 6.8 FiO2 70% Sodium Potassium Chloride Carbon Dioxide Anion Gap BUN Creatinine Est GFR ( Amer) Est GFR (Non-Af Amer) Glucose Calcium Magnesium Total Protein Fluid Type Fluid Source Fluid Color Fluid Appearance Fluid Viscosity Fluid WBC Fluid RBC 07/20/18 15:40 NT-Pro-B Natriuret Pep 945 H Impressions: Chest X-Ray 07/22/18 15:00 IMPRESSION: No pneumothorax 2 hours post right thoracentesis Persistent right retrocardiac consolidation Thoracentesis Ultrasound 07/22/18 17:32 IMPRESSION: SUCCESSFUL THORACENTESIS USING ULTRASOUND GUIDANCE. Assessment & Plan - Diagnosis (1) Hypotension Is this a current diagnosis for this admission?: Yes Plan: She did require Levophed overnight. She was weaned off Levophed this morning for a few hours but did went down to 85/40s after thoracentesis and increase in BIPAP settings. Will be cautious about increasing BIPAP settings as it may reduce venous return contributing to hypotension especially with recent throracetentesis. Suspecting cor pulmonale in a long standing COPD patient. Await echo report. (2) Acute respiratory failure with hypoxia Is this a current diagnosis for this admission?: Yes Plan: Secondary to community-acquired pneumonia with pleural effusion. 07/20: She was off BIPAP for 4 hrs. Later this afternoon, she desaturated to low 80s. She was not in distress. She was moved to the ICU where ABG was drawn and showed acute on chronic hypercarbia with PCO2 of 100. She is comfortable on BIPAP. She is fully awake and well oriented x 4. No mental status changes at this time. Discussed possibility of intubation if her breathing decompensates or if she has mental status changes. 07/21: Increase BIPAP settings to 16/8/70%. Will also consult pulmonology. 07/22: BIPAP increased to 20/8 by pulmonology. (3) Acute and chronic respiratory failure with hypercapnia Is this a current diagnosis for this admission?: Yes Plan: She is not on home O2 but does admit she has not been compliance with ff-up and has not been assessed for need for home O2. ABG is suggestive of chronic CO2 retention as well. (4) Pneumonia Qualifiers: Pneumonia type: due to unspecified organism Laterality: right Lung location: lower lobe of lung Qualified Code(s): J18.1 - Lobar pneumonia, unspecified organism Is this a current diagnosis for this admission?: Yes Plan: Continue Rocephin and azithromycin. Sputum culture pending. Flu testing was negative. (5) Hypertension Is this a current diagnosis for this admission?: Yes Plan: Patient takes amlodipine, losartan and hydrochlorothiazide at home. Discontinued amlodipine due to pedal edema. Hold antihypertensives for now due to hypotension. (6) Pleural effusion Is this a current diagnosis for this admission?: Yes Plan: Right sided possible para pneumonic. 07/21: S/P right sided thoracentesis with 550 cc drained. (7) Cirrhosis Is this a current diagnosis for this admission?: Yes Plan: CT shows possible cirrhosis. - Time Time Spent with patient: 25-34 minutes
[2018-07-22] MEDS ORDERED: NORMAL SALINE 1000 ML 1,000 ML IV PRN ×2 (19:07→19:13)
[2018-07-22] MEDS: ATORVASTATIN CALCIUM 20 MG TABLET PO SCH (21:48)
--- NOTE | 2018-07-23 00:27 | XCELERA REPORT ---
[address] [address] Transthoracic Echocardiogram Report Name: NIGEL CALL Age: 62 yrs Gender: Female : 1955 Patient Status: Inpatient Patient Location: [address] [place], [place] [address] Study Date: 07/21/2018 03:02 PM Height: 63 in Weight: 304 lb BSA: 2.3 m2 Procedure: A two-dimensional transthoracic echocardiogram with color flow and Doppler was performed. Technically limited due to patient body habitus.Poor endocardial visualisation. Reason For Study: CHF History: CHF. Ordering Physician: FRANCES WU Performed By: Gloria Rico Interpretation Summary The left ventricle is grossly normal size. Most likely no regional wall motion abnormality.No LVH.Normal LVEF greater than 65%. Doppler measurements suggest normal left ventricular diastolic function The right ventricle is not well visualized secondary to technical limitations Paradoxical septal motion is consistent with right ventricular volume overload The left atrial size is normal. Interarterial septum not well visualized and not well dopplered. Cannot comment on ASD/PFO presence. There is no mitral valve stenosis. There is a trace amount of mitral regurgitation There is mild aortic stenosis There is a peak gradient of 16 mm of Hg. There is no tricuspid stenosis. There is a moderate amount of tricuspid regurgitation There is servere pulmonary hypertension by echo RVSP is 69 to 74 mm of Hg , with RA mean of 15 to 20. The inferior vena cava appeared dilated and decreased < 50% with respiration (RAP 15-20 mmHg) Small pericardial effusion behind the right atrium MMode/2D Measurements & Calculations RVDd: 3.5 cm LVIDd: 4.2 cm FS: 40.2 % Ao root diam: 2.9 cm IVSd: 1.1 cm LVIDs: 2.5 cm EDV(Teich): 77.4 ml Ao root area: 6.4 cm2 LVPWd: 1.1 cm ESV(Teich): 22.3 ml LA dimension: 3.6 cm EF(Teich): 71.2 % Doppler Measurements & Calculations MV E max rylan: MV P1/2t max rylan: Ao V2 max: LV V1 max P.1 cm/sec 105.6 cm/sec 202.4 cm/sec 6.4 mmHg MV A max rylan: MV P1/2t: 73.9 msec Ao max PG: LV V1 max: 75.5 cm/sec MVA(P1/2t): 3.0 cm2 16.4 mmHg 126.7 cm/sec MV E/A: 1.4 MV dec slope: 418.6 cm/sec2 MV dec time: 0.25 sec PA V2 max: TR max rylan: MV P1/2t-pr_phl: 85.9 cm/sec 397.7 cm/sec 73.9 msec PA max P.0 mmHgTR max P.3 mmHg Left Ventricle The left ventricle is grossly normal size. Most likely no regional wall motion abnormality.No LVH.Normal LVEF greater than 65%. Doppler measurements suggest normal left ventricular diastolic function. Paradoxical septal motion is consistent with right ventricular volume overload. Right Ventricle The right ventricle is not well visualized secondary to technical limitations. suspect atleast moderattely enlarged RV and reduced RV systolic function. Atria Right atrium not well visualized secondary to technical limitations. The left atrial size is normal. Interarterial septum not well visualized and not well dopplered. Cannot comment on ASD/PFO presence. Mitral Valve There is no mitral valve stenosis. There is a trace amount of mitral regurgitation. Aortic Valve There is mild aortic stenosis. There is a peak gradient of 16 mm of Hg. Tricuspid Valve There is no tricuspid stenosis. There is a moderate amount of tricuspid regurgitation. There is servere pulmonary hypertension by echo. RVSP is 69 to 74 mm of Hg , with RA mean of 15 to 20. Pulmonic Valve The pulmonic valve is not well visualized. Great Vessels The aortic root is not well visualized. The inferior vena cava appeared dilated and decreased < 50% with respiration (RAP 15-20 mmHg). Effusions Small pericardial effusion behind the right atrium. : FRANCES WU > Alesha Farris
[2018-07-23] MEDS: IPRATROPIUM/ALBUTEROL 0.5-2.5 MG/3 ML AMPUL NEB SCH ×4 (02:28→19:18)
[2018-07-23] MEDS: ACETYLCYSTEINE 10% NEB 400 MG/4 ML VIAL NEB SCH ×4 (02:30→19:18)
[2018-07-23 04:08] LABS: ARTERIAL BLOOD BASE EXCESS 11.2 mmol/L; ARTERIAL BLOOD FIO2 70%; ARTERIAL BLOOD H2CO3 2.77 mmol/L (1.05-1.35); ARTERIAL BLOOD HCO3 42.8 mmol/L (20-24); ARTERIAL BLOOD O2 SATURATION 94.2 % (94-98); ARTERIAL BLOOD PH 7.29 (7.35-7.45); ARTERIAL BLOOD TOTAL CO2 45.6 mmol/L (21-25)
[2018-07-23 04:12] LABS: ARTERIAL BLOOD PCO2 92.1 mmHg (35-45)
[2018-07-23] MEDS: METHYLPREDNISOLONE INJ 40 MG/1 ML SDV IV SCH ×2 (05:05→17:28)
[2018-07-23 05:57] LABS: ABSOLUTE LYMPHOCYTES (AUTO) 1.5 10^3/uL (0.5-4.7); ABSOLUTE MONOCYTES (AUTO) 0.7 10^3/uL (0.1-1.4); ABSOLUTE NEUT (AUTO) 4.8 10^3/uL (1.7-8.2); BASOPHILS % (AUTO) 0.1 % (0-2); HEMATOCRIT 48.2 % (36.0-47.0); HEMOGLOBIN 15.4 g/dL (12.0-15.5); LYMPHOCYTES % (AUTO) 20.6 % (13-45); MEAN CORPUSCULAR HEMOGLOBIN 27.5 pg (27.0-33.4); MEAN CORPUSCULAR VOLUME 86 fl (80-97); MONOCYTES % (AUTO) 10.5 % (3-13); PLATELET COUNT 183 10^3/uL (150-450); RED BLOOD COUNT 5.61 10^6/uL (3.72-5.28); RED CELL DISTRIBUTION WIDTH 19.2 % (11.5-14.0); SEGMENTED NEUTROPHILS % (AUTO) 68.8 % (42-78); TOTAL CELLS COUNTED % (AUTO) 100 %
--- NOTE | 2018-07-23 06:45 | RADIOLOGY REPORT (SQ) ---
EXAM DESCRIPTION: XR CHEST 1 VIEW COMPLETED DATE/TME: 07/23/2018 06:00 CLINICAL HISTORY: 62 years Female, resp failure COMPARISON: One day prior. NUMBER OF VIEWS/TECHNIQUE: 1/AP FINDINGS: Moderate mixed airspace and interstitial opacities. Moderate right basilar opacity-effusion.Moderately enlarged cardiac silhouette. No pneumothorax. Stable bony thorax. IMPRESSION: No significant change.
[2018-07-23] MEDS: FONDAPARINUX SODIUM INJ 2.5 MG/0.5 ML DISP.SYRIN SUBCUT SCH (09:51)
[2018-07-23] MEDS: ASPIRIN 81 MG TABLET, ENT COATED PO SCH (09:51)
[2018-07-23] MEDS: AZITHROMYCIN 250 MG TABLET PO SCH (11:02)
[2018-07-23] MEDS ORDERED: DEXTROSE 50%-WATER SYRINGE 25 GM/50 ML DOSE IV PRN (11:30)
[2018-07-23] MEDS ORDERED: DEXTROSE 40% GEL 15 GM TUBE X 2 PO PRN (11:30)
[2018-07-23] MEDS ORDERED: DEXTROSE 40% GEL 15 GM TUBE PO PRN (11:30)
[2018-07-23] MEDS ORDERED: GLUCAGON,HUMAN RECOMB 1 MG INJ IM PRN (11:30)
[2018-07-23] MEDS ORDERED: DEXTROSE 50%-WATER SYRINGE 12.5 GM/25 ML DOSE IV PRN (11:30)
--- NOTE | 2018-07-23 14:44 | PDOC PROGRESS REPORT ---
Subjective Progress Note for:: 07/23/18 Subjective:: NIGEL CALL is a 62 year old female with a past medical history of hypertension, hyperlipidemia, pac-qbxnmfs-lkqhccnry diabetes mellitus, and COPD not on home O2 who presented with increasing shortness of breath, bipedal edema and cough. She was requiring BIPAP and was found to have a right sided pneumonia and was admitted for acute hypoxic respiratory failure. 07/21: Patient this morning says her breathing feels slightly better. She was off BIPAP for 4 hrs. Later this afternoon, she desaturated to low 80s. She was not in distress. She was moved to the ICU where ABG was drawn and showed acute on chronic hypercarbia with PCO of 100. She is comfortable on BIPAP. She is fully awake and well oriented x 4. No mental status changes at this time. Discussed possibility of intubation if her breathing decompensates or if she has mental status changes. 07/22: Patient's respiratory status did not deteriorate overnight. She is maintaining good saturation on BIPAP. No mental status changes despite significantly elevated PCO2. She did drop her blood pressure overnight and required low dose Levophed. Lasix was also DCed. She just had a right sided thoracenteisis and had 550 cc drained. She tolerated the procedure well. She says her SOB has slightly improved. Denies chest pain. 07/23: Overnight, she was resumed on low dose levophed (2 mics) per cardio recommendation for her right sided heart failure. Her BP went up to the 150 systolic and levophed was d/jose armando This morning, she is saturating well on BIPAP. Echo did show right sided failure. She denies chest pain. She says her breathing has slightly improved today. Reason For Visit: ACUTE HYPOXIC RESPIRATORY FAILURE Physical Exam Vital Signs: Temp Pulse Resp BP Pulse Ox 99.3 F 99 21 H 143/79 H 95 07/23/18 12:00 07/23/18 12:00 07/23/18 12:00 07/23/18 12:00 07/23/18 12:00 Intake & Output 07/22/18 07/23/18 07/24/18 06:59 06:59 06:59 Intake Total 1409 225 480 Output Total 450 1325 500 Balance 959 -1100 -20 Weight 308 lb 13.882 oz 310 lb 6.574 oz General appearance: PRESENT: no acute distress, well-developed, well-nourished Head exam: PRESENT: atraumatic, normocephalic Eye exam: PRESENT: conjunctiva pink, EOMI, PERRLA. ABSENT: scleral icterus Ear exam: PRESENT: normal external ear exam Mouth exam: PRESENT: moist, tongue midline Neck exam: ABSENT: carotid bruit, JVD, lymphadenopathy, thyromegaly Respiratory exam: PRESENT: clear to auscultation ba. ABSENT: rales, rhonchi, wheezes Cardiovascular exam: PRESENT: RRR. ABSENT: diastolic murmur, rubs, systolic m urmur Pulses: PRESENT: normal dorsalis pedis pul GI/Abdominal exam: PRESENT: normal bowel sounds, soft. ABSENT: distended, guarding, mass, organolmegaly, rebound, tenderness Rectal exam: PRESENT: deferred Extremities exam: PRESENT: +1 edema Neurological exam: PRESENT: alert, awake, oriented to person, oriented to place, oriented to time, oriented to situation, CN II-XII grossly intact. ABSENT: motor sensory deficit Results Laboratory Results: 07/23/18 05:47 07/22/18 03:53 07/22/18 07/22/18 07/22/18 12:25 12:25 12:25 WBC RBC Hgb Hct MCV MCH MCHC RDW Plt Count Seg Neutrophils % Lymphocytes % Monocytes % Eosinophils % Basophils % Absolute Neutrophils Absolute Lymphocytes Absolute Monocytes Absolute Eosinophils Absolute Basophils Carbonic Acid HCO3/H2CO3 Ratio ABG pH ABG pCO2 ABG pO2 ABG HCO3 ABG O2 Saturation ABG Base Excess FiO2 Magnesium Fluid Glucose 230 Fluid Total Protein 2.0 Fluid LDH 77 07/22/18 07/23/18 07/23/18 14:40 03:50 05:47 WBC 7.0 RBC 5.61 H Hgb 15.4 Hct 48.2 H MCV 86 MCH 27.5 MCHC 32.0 RDW 19.2 H Plt Count 183 Seg Neutrophils % 68.8 Lymphocytes % 20.6 Monocytes % 10.5 Eosinophils % 0.0 Basophils % 0.1 Absolute Neutrophils 4.8 Absolute Lymphocytes 1.5 Absolute Monocytes 0.7 Absolute Eosinophils 0.0 Absolute Basophils 0.0 Carbonic Acid 2.66 H 2.77 H HCO3/H2CO3 Ratio 14:1 15:1 ABG pH 7.25 L 7.29 L ABG pCO2 88.5 H* 92.1 H* ABG pO2 80.2 83.0 ABG HCO3 38.1 H 42.8 H ABG O2 Saturation 93.3 L 94.2 ABG Base Excess 6.8 11.2 FiO2 70% 70% Magnesium Fluid Glucose Fluid Total Protein Fluid LDH 07/23/18 05:47 WBC RBC Hgb Hct MCV MCH MCHC RDW Plt Count Seg Neutrophils % Lymphocytes % Monocytes % Eosinophils % Basophils % Absolute Neutrophils Absolute Lymphocytes Absolute Monocytes Absolute Eosinophils Absolute Basophils Carbonic Acid HCO3/H2CO3 Ratio ABG pH ABG pCO2 ABG pO2 ABG HCO3 ABG O2 Saturation ABG Base Excess FiO2 Magnesium 1.6 Fluid Glucose Fluid Total Protein Fluid LDH 07/20/18 15:40 NT-Pro-B Natriuret Pep 945 H Impressions: Thoracentesis Ultrasound 07/22/18 17:32 IMPRESSION: SUCCESSFUL THORACENTESIS USING ULTRASOUND GUIDANCE. Chest X-Ray 07/23/18 06:00 IMPRESSION: No significant change. Assessment & Plan - Diagnosis (1) Cor pulmonale Is this a current diagnosis for this admission?: Yes Plan: Echo does show right sided heart failure. She has long standing COPD. There is also a possibility of idiopathic pulmonary HTN. Unable to do VQ scan at this time due to large pneumonia. Will try to get more input from a tertiary pulmonary HTN specialist. (2) Hypotension Is this a current diagnosis for this admission?: Yes Plan: 05/21: She did require Levophed overnight. She was weaned off Levophed this morning for a few hours but did went down to 85/40s after thoracentesis and increase in BIPAP settings. Will be cautious about increasing BIPAP settings as it may reduce venous return contributing to hypotension especially with recent throracetentesis. Suspecting cor pulmonale in a long standing COPD patient. Await echo report. 05/22: She was resumed on low dose levophed (2 mics) per cardio recommendation for her right sided heart failure. Her BP went up to the 150 systolic and levophed was d/jose armando This morning, she is saturating well on BIPAP. Echo did show right sided failure. She denies chest pain. She says her breathing has slightly improved today. (3) Acute respiratory failure with hypoxia Is this a current diagnosis for this admission?: Yes Plan: Secondary to community-acquired pneumonia with pleural effusion. 07/20: She was off BIPAP for 4 hrs. Later this afternoon, she desaturated to low 80s. She was not in distress. She was moved to the ICU where ABG was drawn and showed acute on chronic hypercarbia with PCO2 of 100. She is comfortable on BIPAP. She is fully awake and well oriented x 4. No mental status changes at this time. Discussed possibility of intubation if her breathing decompensates or if she has mental status changes. 07/21: Increase BIPAP settings to 16/8/70%. Will also consult pulmonology. 07/22: BIPAP increased to 20/8 by pulmonology. 07/23: Keep BIPAP at 16/8. (4) Acute and chronic respiratory failure with hypercapnia Is this a current diagnosis for this admission?: Yes Plan: She is not on home O2 but does admit she has not been compliance with ff-up and has not been assessed for need for home O2. ABG is suggestive of chronic CO2 retention as well. (5) Pneumonia Qualifiers: Pneumonia type: due to unspecified organism Laterality: right Lung location: lower lobe of lung Qualified Code(s): J18.1 - Lobar pneumonia, unspecified organism Is this a current diagnosis for this admission?: Yes Plan: Continue Rocephin and azithromycin. Sputum culture pending. Flu testing was negative. (6) Hypertension Is this a current diagnosis for this admission?: Yes Plan: Patient takes amlodipine, losartan and hydrochlorothiazide at home. Discontinued amlodipine due to pedal edema. Hold antihypertensives for now due to hypotension. (7) Pleural effusion Is this a current diagnosis for this admission?: Yes Plan: Right sided possible para pneumonic. 07/21: S/P right sided thoracentesis with 550 cc drained. Pleural fluid studies pending. (8) Cirrhosis Is this a current diagnosis for this admission?: Yes Plan: CT shows possible cirrhosis. Likely from chronic passive congestion from right sided heart failure. Will also check hepatitis panel. - Time Time Spent with patient: 35 or more minutes
[2018-07-23] MEDS: INSULIN LISPRO 100 UNIT/ML 3 ML VIAL SUBCUT SCH ×2 (16:51→22:09)
--- NOTE | 2018-07-23 17:04 | RADIOLOGY REPORT (SQ) ---
EXAM DESCRIPTION: CTA CHEST COMPLETED DATE/TIME: 07/23/2018 4:43 pm REASON FOR STUDY: severe pulm HTN, r/o PE COMPARISON: 07/20/2018 TECHNIQUE: CT scan of the chest performed using helical scanning technique with dynamic intravenous contrast injection. Images reviewed with lung, soft tissue and bone windows. Reconstructed coronal and sagittal MPR images reviewed. Additional 3 dimensional post-processing performed to develop Maximal Intensity Projection images (LA P). All images stored on PACS. All CT scanners at this facility use dose modulation, iterative reconstruction, and/or weight based d osing when appropriate to reduce radiation dose to as low as reasonably achievable (ALARA). [facility]: Dose Right [facility]: CareDose [facility]: Dose Right [facility]: Teradose 4D [facility]: [place] CONTRAST TYPE AND DOSE: contrast/concentration: Isovue 350.00 mg/ml; Total Contrast Delivered: 90.0 ml; Total Saline Delivered: 77.8 ml Contrast bolus optimized for the pulmonary arteries. Not diagnostic for the aorta. RENAL FUNCTION: BUN 15 creatinine 0.64 RADIATION DOSE: CT Rad equipment meets quality standard of care and radiation dose reduction techniq ues were employed. CTDIvol: 40.4 - 41.3 mGy. DLP: 1416 mGy-cm. . LIMITATIONS: None. FINDINGS: LUNGS AND PLEURA: Moderate right pleural effusion. Small left pleural effusion. Compress gordy atelectasis in both lower lobes. AORTA AND GREAT VESSELS: No aneurysm. Contrast bolus not optimized for the aorta. HEART: Cardiomegaly. No pericardial effusion. No significant coronary artery calcifications. PULMONARY ARTERIES: No emboli visualized in the main pulmonary arteries or the segmental branches. HILAR AND MEDIASTINAL STRUCTURES: No identified masses or abnormal nodes. HARDWARE: None in the chest. UPPER ABDOMEN: No significant findings. Limited exam. THYROID AND OTHER SOFT TISSUES: No masses. No adenopathy. BONES: No acute or significant finding. 3D MIPS: Confirm above findings. OTHER: No other significant finding. IMPRESSION: 1. There is no evidence of pulmonary emboli. 2. Moderate right pleural effusion smaller left pleural effusion with atelectatic changes in both lo wer lobes. 3. Cardiomegaly. COMMENT: Quality ID # [id number]: Final reports with documentation of one or more dose reduction techniques (e.g., Automated exposure control, adjustment of the mA and/or kV according to patient size, use of iterative reconstruction technique) TECHNICAL DOCUMENTATION: JOB ID: [id number] [employer]- All Rights Reserved Reading location - IP/workstation name: [email or web address]
[2018-07-23] MEDS: CEFTRIAXONE 1 GM/D5W RTU 1 GM/50 ML RTUPB IV SCH (17:28)
[2018-07-23] MEDS: ATORVASTATIN CALCIUM 20 MG TABLET PO SCH (22:09)
[2018-07-24] MEDS: ACETYLCYSTEINE 10% NEB 400 MG/4 ML VIAL NEB SCH ×4 (02:14→20:50)
[2018-07-24] MEDS: IPRATROPIUM/ALBUTEROL 0.5-2.5 MG/3 ML AMPUL NEB SCH ×4 (02:14→20:51)
[2018-07-24 03:57] LABS: ABSOLUTE LYMPHOCYTES (AUTO) 1.6 10^3/uL (0.5-4.7); ABSOLUTE MONOCYTES (AUTO) 0.9 10^3/uL (0.1-1.4); ABSOLUTE NEUT (AUTO) 5.1 10^3/uL (1.7-8.2); BASOPHILS % (AUTO) 0.1 % (0-2); HEMATOCRIT 49.4 % (36.0-47.0); HEMOGLOBIN 15.5 g/dL (12.0-15.5); LYMPHOCYTES % (AUTO) 20.8 % (13-45); MEAN CORPUSCULAR HEMOGLOBIN 26.8 pg (27.0-33.4); MEAN CORPUSCULAR HGB CONC 31.4 g/dL (32.0-36.0); MEAN CORPUSCULAR VOLUME 86 fl (80-97); MONOCYTES % (AUTO) 11.5 % (3-13); PLATELET COUNT 167 10^3/uL (150-450); RED BLOOD COUNT 5.77 10^6/uL (3.72-5.28); RED CELL DISTRIBUTION WIDTH 19.3 % (11.5-14.0); SEGMENTED NEUTROPHILS % (AUTO) 67.6 % (42-78); TOTAL CELLS COUNTED % (AUTO) 100 %; WHITE BLOOD COUNT 7.5 10^3/uL (4.0-10.5)
[2018-07-24 04:08] LABS: BLOOD UREA NITROGEN 17 mg/dL (7-20); CALCIUM 8.9 mg/dL (8.4-10.2); GLUCOSE 197 mg/dL (75-110); POTASSIUM 4.6 mmol/L (3.6-5.0)
[2018-07-24 04:13] LABS: CHLORIDE 95 mmol/L (98-107); SODIUM 138.5 mmol/L (137-145)
[2018-07-24 04:18] LABS: ANION GAP 4 (5-19)
[2018-07-24 04:20] LABS: CARBON DIOXIDE 40 mmol/L (22-30)
[2018-07-24 05:34] LABS: ARTERIAL BLOOD BASE EXCESS 12.9 mmol/L; ARTERIAL BLOOD H2CO3 2.13 mmol/L (1.05-1.35); ARTERIAL BLOOD HCO3 41.8 mmol/L (20-24); ARTERIAL BLOOD O2 SATURATION 94.7 % (94-98); ARTERIAL BLOOD PH 7.39 (7.35-7.45); ARTERIAL BLOOD PO2 76.5 mmHg (80-100); ARTERIAL BLOOD TOTAL CO2 43.9 mmol/L (21-25)
[2018-07-24 05:35] LABS: ARTERIAL BLOOD FIO2 50%
[2018-07-24 05:38] LABS: ARTERIAL BLOOD PCO2 70.6 mmHg (35-45)
[2018-07-24] MEDS: METHYLPREDNISOLONE INJ 40 MG/1 ML SDV IV SCH ×2 (06:02→17:51)
--- NOTE | 2018-07-24 07:03 | RADIOLOGY REPORT (SQ) ---
EXAM DESCRIPTION: XR CHEST 1 VIEW COMPLETED DATE/TME: 07/24/2018 06:00 CLINICAL HISTORY: 62 years Female, resp failure COMPARISON: One day prior. NUMBER OF VIEWS/TECHNIQUE: 1/AP FINDINGS: Moderate right lower hemithoracic opacity-effusion. Moderate interstitial markings. Mildly enlarged cardiac silhouette. No pneumothorax. Stable bony thorax. IMPRESSION: Worsening includes moderate opacification of the right lower 50% hemithorax.
[2018-07-24] MEDS: INSULIN LISPRO 100 UNIT/ML 3 ML VIAL SUBCUT SCH ×4 (07:50→21:51)
[2018-07-24] MEDS: FONDAPARINUX SODIUM INJ 2.5 MG/0.5 ML DISP.SYRIN SUBCUT SCH (07:52)
[2018-07-24] MEDS: ASPIRIN 81 MG TABLET, ENT COATED PO SCH (09:39)
--- NOTE | 2018-07-24 12:01 | PDOC PROGRESS REPORT ---
Subjective Progress Note for:: 07/24/18 Subjective:: NIGEL CALL is a 62 year old female with a past medical history of hypertension, hyperlipidemia, znj-evfocmu-abkuljnty diabetes mellitus, and COPD not on home O2 who presented with increasing shortness of breath, bipedal edema and cough. She was requiring BIPAP and was found to have a right sided pneumonia and was admitted for acute hypoxic respiratory failure. 07/21: Patient this morning says her breathing feels slightly better. She was off BIPAP for 4 hrs. Later this afternoon, she desaturated to low 80s. She was not in distress. She was moved to the ICU where ABG was drawn and showed acute on chronic hypercarbia with PCO of 100. She is comfortable on BIPAP. She is fully awake and well oriented x 4. No mental status changes at this time. Discussed possibility of intubation if her breathing decompensates or if she has mental status changes. 07/22: Patient's respiratory status did not deteriorate overnight. She is maintaining good saturation on BIPAP. No mental status changes despite significantly elevated PCO2. She did drop her blood pressure overnight and required low dose Levophed. Lasix was also DCed. She just had a right sided thoracenteisis and had 550 cc drained. She tolerated the procedure well. She says her SOB has slightly improved. Denies chest pain. 07/23: Overnight, she was resumed on low dose levophed (2 mics) per cardio recommendation for her right sided heart failure. Her BP went up to the 150 systolic and levophed was d/jose armando This morning, she is saturating well on BIPAP. Echo did show right sided failure. She denies chest pain. She says her breathing has slightly improved today. 07/24: No acute event overnight. She has not required any pressor the whole day yesterday. She says her breathing is much better today. Her PCO has improved down to 70 from 100. She has been compliant with BIPAP. Denies chest pain. Reason For Visit: ACUTE HYPOXIC RESPIRATORY FAILURE Physical Exam Vital Signs: Temp Pulse Resp BP Pulse Ox 98.6 F 107 H 21 H 131/76 H 91 L 07/24/18 08:00 07/24/18 08:45 07/24/18 11:21 07/24/18 11:21 07/24/18 11:20 Intake & Output 07/23/18 07/24/18 07/25/18 06:59 06:59 06:59 Intake Total 225 1530 Output Total 1325 1825 75 Balance -1100 -295 -75 Weight 310 lb 6.574 oz 311 lb 4.683 oz General appearance: PRESENT: no acute distress, well-developed, well-nourished Head exam: PRESENT: atraumatic, normocephalic Eye exam: PRESENT: conjunctiva pink, EOMI, PERRLA. ABSENT: scleral icterus Ear exam: PRESENT: normal external ear exam Mouth exam: PRESENT: moist, tongue midline Neck exam: ABSENT: carotid bruit, JVD, lymphadenopathy, thyromegaly Respiratory exam: PRESENT: clear to auscultation ba. ABSENT: rales, rhonchi, wheezes Cardiovascular exam: PRESENT: RRR. ABSENT: diastolic murmur, rubs, systolic murmur Pulses: PRESENT: normal dorsalis pedis pul GI/Abdominal exam: PRESENT: normal bowel sounds, soft. ABSENT: distended, guarding, mass, organolmegaly, rebound, tenderness Rectal exam: PRESENT: deferred Extremities exam: PRESENT: +1 edema Neurological exam: PRESENT: alert, awake, oriented to person, oriented to place, oriented to time, oriented to situation, CN II-XII grossly intact. ABSENT: motor sensory deficit Results Laboratory Results: 07/24/18 03:43 07/24/18 03:43 07/22/18 07/22/18 07/22/18 12:25 12:25 12:25 WBC RBC Hgb Hct MCV MCH MCHC RDW Plt Count Seg Neutrophils % Lymphocytes % Monocytes % Eosinophils % Basophils % Absolute Neutrophils Absolute Lymphocytes Absolute Monocytes Absolute Eosinophils Absolute Basophils Carbonic Acid HCO3/H2CO3 Ratio ABG pH ABG pCO2 ABG pO2 ABG HCO3 ABG O2 Saturation ABG Base Excess FiO2 Sodium Potassium Chloride Carbon Dioxide Anion Gap BUN Creatinine Est GFR ( Amer) Est GFR (Non-Af Amer) Glucose Calcium Magnesium Fluid Glucose 230 Fluid Total Protein 2.0 Fluid LDH 77 07/24/18 07/24/18 07/24/18 03:43 03:43 05:21 WBC 7.5 RBC 5.77 H Hgb 15.5 Hct 49.4 H MCV 86 MCH 26.8 L MCHC 31.4 L RDW 19.3 H Plt Count 167 Seg Neutrophils % 67.6 Lymphocytes % 20.8 Monocytes % 11.5 Eosinophils % 0.0 Basophils % 0.1 Absolute Neutrophils 5.1 Absolute Lymphocytes 1.6 Absolute Monocytes 0.9 Absolute Eosinophils 0.0 Absolute Basophils 0.0 Carbonic Acid 2.13 H HCO3/H2CO3 Ratio 19:1 ABG pH 7.39 ABG pCO2 70.6 H* ABG pO2 76.5 L ABG HCO3 41.8 H ABG O2 Saturation 94.7 ABG Base Excess 12.9 FiO2 50% Sodium 138.5 Potassium 4.6 Chloride 95 L Carbon Dioxide 40 H* Anion Gap 4 L BUN 17 Creatinine 0.55 Est GFR ( Amer) > 60 Est GFR (Non-Af Amer) > 60 Glucose 197 H Calcium 8.9 Magnesium 1.7 Fluid Glucose Fluid Total Protein Fluid LDH 07/20/18 15:40 NT-Pro-B Natriuret Pep 945 H Impressions: Thoracentesis Ultrasound 07/22/18 17:32 IMPRESSION: SUCCESSFUL THORACENTESIS USING ULTRASOUND GUIDANCE. Chest/Abdomen CTA 07/23/18 16:02 IMPRESSION: 1. There is no evidence of pulmonary emboli. 2. Moderate right pleural effusion smaller left pleural effusion with atelectatic changes in both lower lobes. 3. Cardiomegaly. Chest X-Ray 07/24/18 06:00 IMPRESSION: Worsening includes moderate opacification of the right lower 50% hemithorax. Assessment & Plan - Diagnosis (1) Cor pulmonale Is this a current diagnosis for this admission?: Yes Plan: Echo does show right sided heart failure. She has long standing COPD. Possible ELZA. 07/24: Discussed with pulmonology. Her cor pulmonale is deemed likely from long standing, untreated COPD and possible ELZA. She may need Trilogy at home later. Await further cardio recommendations. (2) Hypotension Is this a current diagnosis for this admission?: Yes Plan: 05/21: She did require Levophed overnight. She was weaned off Levophed this morning for a few hours but did went down to 85/40s after thoracentesis and increase in BIPAP settings. Will be cautious about increasing BIPAP settings as it may reduce venous return contributing to hypotension especially with recent throracetentesis. Suspecting cor pulmonale in a long standing COPD patient. Await echo report. 05/22: She was resumed on low dose levophed (2 mics) per cardio recommendation for her right sided heart failure. Her BP went up to the 150 systolic and levophed was d/jose armando This morning, she is saturating well on BIPAP. Echo did show right sided failure. She denies chest pain. She says her breathing has slightly improved today. Resolved. (3) Acute respiratory failure with hypoxia Is this a current diagnosis for this admission?: Yes Plan: Secondary to community-acquired pneumonia with pleural effusion. 07/20: She was off BIPAP for 4 hrs. Later this afternoon, she desaturated to low 80s. She was not in distress. She was moved to the ICU where ABG was drawn and showed acute on chronic hypercarbia with PCO2 of 100. She is comfortable on BIPAP. She is fully awake and well oriented x 4. No mental status changes at th is time. Discussed possibility of intubation if her breathing decompensates or if she has mental status changes. 07/21: Increase BIPAP settings to 16/8/70%. Will also consult pulmonology. 07/22: BIPAP increased to 20/8 by pulmonology. 07/24: Discussed with pulm. Patient to be on BIPAP when she is asleep. May be on BIPAP 2 hrs/2 hrs off today. (4) Acute and chronic respiratory failure with hypercapnia Is this a current diagnosis for this admission?: Yes Plan: She is not on home O2 but does admit she has not been compliance with ff-up and has not been assessed for need for home O2. ABG is suggestive of chronic CO2 retention as well. (5) Pneumonia Qualifiers: Pneumonia type: due to unspecified organism Laterality: right Lung location: lower lobe of lung Qualified Code(s): J18.1 - Lobar pneumonia, u nspecified organism Is this a current diagnosis for this admission?: Yes Plan: Continue Rocephin and azithromycin. Sputum culture pending. Flu testing was negative. (6) Hypertension Is this a current diagnosis for this admission?: Yes Plan: Patient takes amlodipine, losartan and hydrochlorothiazide at home. Discontinued amlodipine due to pedal edema. Held antihypertensives due to recent hypotension. (7) Pleural effusion Is this a current diagnosis for this admission?: Yes Plan: Right sided possible para pneumonic. 07/21: S/P right sided thoracentesis with 550 cc drained. Pleural fluid studies are consistent with transudative effusion. (8) Cirrhosis Is this a current diagnosis for this admission?: Yes Plan: CT shows possible cirrhosis. Likely from chronic passive congestion from right sided heart failure. Will also check hepatitis panel. - Time Time Spent with patient: 35 or more minutes
--- NOTE | 2018-07-24 14:12 | PDOC CONSULTATION ---
Consultation Consult Date: 07/24/18 Consult reason:: Pulmonary hypertension History of Present Illness Admission Date/PCP: 07/20/18 18:10 OLE CARTY MD History of Present Illness: NIGEL CALL is a 62 year old female With past medical history of diabetes, hypertension, morbid obesity, hyperlipidemia who was admitted few days ago with complaints of worsening shortness of breath with swelling of lower extremities and cough and diagnosed with right lower lobe pneumonia. She also had a pulmonary evaluation and had r ight thoracocentesis done for a right pleural effusion. Patient claims that she feels better since she was admitted. She lives with her son and claims shortness of breath at baseline which was getting worse over the past couple of months. She denies any history of chest pain or palpitations or dizziness. She is not very active at home but able to ambulate inside the house. She smokes a pack of cigarettes a day. She denies any history of sleep apnea but does give a history of daytime sleepiness and nighttime snoring. She denies any family history of coronary artery disease. She had a CAT scan of the chest done on 07/23/2018 which revealed moderate right pleural effusion. Past Medical History Cardiac Medical History: Reports: Hyperlipidema, Hypertension Pulmonary Medical History: Reports: Asthma, Chronic Obstructive Pulmonary Disease (COPD) Endocrine Medical History: Reports: Diabetes Mellitus Type 2 - [id number]-mfrgahkir, Obesity Social History Smoking Status: Current Every Day Smoker Cigarettes Packs Per Day: 1 Number of Years Smokin Frequency of Alcohol Use: None Drugs: None Hx Prescription Drug Abuse: No Family History Family History: Reviewed & Not Pertinent Parental Family History Reviewed: Yes Children Family History Reviewed: Unknown Sibling(s) Family History Reviewed.: Yes Medication/Allergy Home Medications: Amlodipine Besylate [Norvasc 5 mg Tablet] 5 mg PO QHS 07/20/18 Aspirin [Adult Aspirin] 81 mg PO DAILY 07/20/18 Atorvastatin Calcium [Lipitor 20 mg Tablet] 20 mg PO QHS 07/20/18 Hydrochlorothiazide [Hydrodiuril 25 mg Tablet] 25 mg PO QAM 07/20/18 Losartan Potassium [Cozaar 100 mg Tablet] 100 mg PO DAILY 07/20/18 Metformin HCl [Glucophage 500 mg Tablet] 1,000 mg PO BID 07/20/18 Allergies/Adverse Reactions: codeine Allergy (Verified 07/20/18 15:52) Latex, Natural Rubber Allergy (Verified 07/20/18 17:42) Penicillins Allergy (Verified 07/20/18 15:52) Review of Systems Respiratory: PRESENT: cough, dyspnea Physical Exam Vital Signs: Temp Pulse Resp BP Pulse Ox 99.1 F 106 H 19 131/76 H 89 L 07/24/18 12:00 07/24/18 13:50 07/24/18 13:50 07/24/18 12:00 07/24/18 13:50 Intake & Output 07/23/18 07/24/18 07/25/18 06:59 06:59 06:59 Intake Total 225 1530 Output Total 1325 1825 450 Balance -1100 -295 -450 Weight 140.8 kg 141.2 kg General appearance: PRESENT: mild distress Head exam: PRESENT: atraumatic, normocephalic Neck exam: PRESENT: full ROM Respiratory exam: PRESENT: other - Bilateral air entry decreased at bases especially on the right side with occasional scattered crepitus. Cardiovascular exam: PRESENT: RRR, +S1, +S2 Pulses: PRESENT: normal radial pulses, normal dorsalis pedis pul, +2 pedal pulses bilateral Extremities exam: PRESENT: full ROM Musculoskeletal exam: PRESENT: full ROM Neurological exam: PRESENT: alert, awake, oriented to person, oriented to place, oriented to time, oriented to situation Results Laboratory Results: 07/24/18 03:43 07/24/18 03:43 07/24/18 07/24/18 07/24/18 03:43 03:43 05:21 WBC 7.5 RBC 5.77 H Hgb 15.5 Hct 49.4 H MCV 86 MCH 26.8 L MCHC 31.4 L RDW 19.3 H Plt Count 167 Seg Neutrophils % 67.6 Lymphocytes % 20.8 Monocytes % 11.5 Eosinophils % 0.0 Basophils % 0.1 Absolute Neutrophils 5.1 Absolute Lymphocytes 1.6 Absolute Monocytes 0.9 Absolute Eosinophils 0.0 Absolute Basophils 0.0 Carbonic Acid 2.13 H HCO3/H2CO3 Ratio 19:1 ABG pH 7.39 ABG pCO2 70.6 H* ABG pO2 76.5 L ABG HCO3 41.8 H ABG O2 Saturation 94.7 ABG Base Excess 12.9 FiO2 50% Sodium 138.5 Potassium 4.6 Chloride 95 L Carbon Dioxide 40 H* Anion Gap 4 L BUN 17 Creatinine 0.55 Est GFR ( Amer) > 60 Est GFR (Non-Af Amer) > 60 Glucose 197 H Calcium 8.9 Magnesium 1.7 07/20/18 15:40 NT-Pro-B Natriuret Pep 945 H Impressions: Thoracentesis Ultrasound 07/22/18 17:32 IMPRESSION: SUCCESSFUL THORACENTESIS USING ULTRASOUND GUIDANCE. Chest/Abdomen CTA 07/23/18 16:02 IMPRESSION: 1. There is no evidence of pulmonary emboli. 2. Moderate right pleural effusion smaller left pleural effusion with atelectatic changes in both lower lobes. 3. Cardiomegaly. Chest X-Ray 07/24/18 06:00 IMPRESSION: Worsening includes moderate opacification of the right lower 50% hemithorax. Assessment & Plan - Diagnosis (1) Acute and chronic respiratory failure with hypercapnia Is this a current diagnosis for this admission?: Yes (3) Hypertension Is this a current diagnosis for this admission?: Yes (5) Pneumonia Qualifiers: Pneumonia type: due to unspecified organism Laterality: right Lung location: lower lobe of lung Qualified Code(s): J18.1 - Lobar pneumonia, unspecified organism Is this a current diagnosis for this admission?: Yes - Notes Notes: Reviewed EKG, telemetry, imaging tests. Morbidly obese patient with multiple comorbidities admitted with right lower lobe pneumonia with right pleural effusion status post thoracocentesis. Echocardiogram reviewed and showed normal EF with right ventricle not well visualized but signs of RV volume overload noted. Right ventricular systolic pressure based on TR jet estimated at 69-74 mmHg suggestive of pulmonary hypertension. Sign of elevated mean right atrial p ressure noted per echocardiogram result. Patient was on pressor support for a short period but is off pressors now. Agree with continued antibiotic therapy for treatment of her right lower lobe pneumonia and recommend consideration for lateral decubitus x-ray of the chest to rule out increasing right pleural effusion that may require repeat thoracocentesis. No roc anginal symptoms at this time to warrant any ischemia workup but should be considered as an outpatient at some point. Regarding her pulmonary hypertension she will need a right heart cath at some point to directly estimate her mean pulmonary artery pressure and likely vasodilator test to classify her pulmonary hypertension and accordingly figure out if she is going to be a candidate for vasodilator therapy at some point. It is likely that her pulmonary hypertension is mixed. Patient agrees to follow with Dr. Farris as an outpatient for scheduling right heart catheterization when she is recovered from her pneumonia. She should also be considered for an outpatient sleep study to rule out obstructive sleep apnea. Please call us if any questions but otherwise schedule outpatient appointment with Dr. Farris upon discharge. - Time Time Spent: 50 to 70 Minutes
[2018-07-24] MEDS: AZITHROMYCIN 250 MG TABLET PO SCH (14:30)
--- NOTE | 2018-07-24 15:37 | RADIOLOGY REPORT (SQ) ---
EXAM DESCRIPTION: CHEST 2 VIEWS COMPLETED DATE/TIME: 07/24/2018 3:19 pm REASON FOR STUDY: lateral decubitus for reassess of pleural eff COMPARISON: AP chest 07/24/2018 CT chest 07/23/2018 CT chest 07/20/2018 EXAM PARAMETERS: NUMBER OF VIEWS: two views TECHNIQUE: Right decubitus view, left decubitus view of the chest RADIATION DOSE: NA LIMITATIONS: none FINDINGS: LUNGS AND PLEURA: Persistent dense consolidation throughout the right lower lobe. Trace freely layering right pleural effusion Left lung clear. No left pleural fluid. No right or left pneumothorax MEDIASTINUM AND HILAR STRUCTURES: No masses or contour abnormalities. HEART AND VASCULAR STRUCTURES: Stable cardiomegaly BONES: No acute findings. HARDWARE: None in the chest. OTHER: No other significant finding. IMPRESSION: Persistent collapse and consolidation right lower lobe with trace right pleural effusion TECHNICAL DOCUMENTATION: JOB ID: [id number] [employer]- All Rights Reserved Reading location - IP/workstation name: [email or web address]
[2018-07-24] MEDS: CEFTRIAXONE 1 GM/D5W RTU 1 GM/50 ML RTUPB IV SCH (17:51)
[2018-07-24] MEDS: ATORVASTATIN CALCIUM 20 MG TABLET PO SCH (21:45)
[2018-07-24] MEDS: ACETAZOLAMIDE 250 MG TABLET PO SCH (21:45)
[2018-07-25] MEDS: ACETYLCYSTEINE 10% NEB 400 MG/4 ML VIAL NEB SCH ×4 (02:46→20:02)
[2018-07-25] MEDS: IPRATROPIUM/ALBUTEROL 0.5-2.5 MG/3 ML AMPUL NEB SCH ×4 (02:46→20:02)
[2018-07-25] MEDS: METHYLPREDNISOLONE INJ 40 MG/1 ML SDV IV SCH ×2 (05:28→17:17)
[2018-07-25] MEDS: FONDAPARINUX SODIUM INJ 2.5 MG/0.5 ML DISP.SYRIN SUBCUT SCH (07:43)
[2018-07-25] MEDS: INSULIN LISPRO 100 UNIT/ML 3 ML VIAL SUBCUT SCH ×4 (07:43→22:57)
[2018-07-25 09:29] LABS: ARTERIAL BLOOD BASE EXCESS 8.4 mmol/L; ARTERIAL BLOOD H2CO3 2.21 mmol/L (1.05-1.35); ARTERIAL BLOOD HCO3 37.9 mmol/L (20-24); ARTERIAL BLOOD O2 SATURATION 91.9 % (94-98); ARTERIAL BLOOD PH 7.33 (7.35-7.45); ARTERIAL BLOOD PO2 68.9 mmHg (80-100); ARTERIAL BLOOD TOTAL CO2 40.2 mmol/L (21-25)
[2018-07-25 09:31] LABS: ARTERIAL BLOOD FIO2 5L
[2018-07-25 09:32] LABS: ARTERIAL BLOOD PCO2 73.4 mmHg (35-45)
[2018-07-25] MEDS: ASPIRIN 81 MG TABLET, ENT COATED PO SCH (10:06)
[2018-07-25] MEDS: ACETAZOLAMIDE 250 MG TABLET PO SCH ×2 (10:06→22:51)
[2018-07-25] MEDS: CALCIUM CARBONATE 500 MG TAB.CHEW PO PRN (10:11)
[2018-07-25 10:14] LABS: ABSOLUTE MONOCYTES (AUTO) 0.4 10^3/uL (0.1-1.4); ABSOLUTE NEUT (AUTO) 5.8 10^3/uL (1.7-8.2); BASOPHILS % (AUTO) 0.2 % (0-2); HEMATOCRIT 50.5 % (36.0-47.0); HEMOGLOBIN 15.9 g/dL (12.0-15.5); LYMPHOCYTES % (AUTO) 13.5 % (13-45); MEAN CORPUSCULAR HEMOGLOBIN 27.2 pg (27.0-33.4); MEAN CORPUSCULAR HGB CONC 31.4 g/dL (32.0-36.0); MEAN CORPUSCULAR VOLUME 87 fl (80-97); MONOCYTES % (AUTO) 5.3 % (3-13); PLATELET COUNT 176 10^3/uL (150-450); RED BLOOD COUNT 5.82 10^6/uL (3.72-5.28); RED CELL DISTRIBUTION WIDTH 19.1 % (11.5-14.0); TOTAL CELLS COUNTED % (AUTO) 100 %; WHITE BLOOD COUNT 7.1 10^3/uL (4.0-10.5)
[2018-07-25 10:31] LABS: ANION GAP 6 (5-19); BLOOD UREA NITROGEN 17 mg/dL (7-20); CALCIUM 8.9 mg/dL (8.4-10.2); CARBON DIOXIDE 37 mmol/L (22-30); CHLORIDE 96 mmol/L (98-107); GLUCOSE 268 mg/dL (75-110); POTASSIUM 4.6 mmol/L (3.6-5.0); SODIUM 139.3 mmol/L (137-145)
[2018-07-25] MEDS: AZITHROMYCIN 250 MG TABLET PO SCH (11:46)
--- NOTE | 2018-07-25 14:49 | PDOC PROGRESS REPORT ---
Subjective Progress Note for:: 07/25/18 Subjective:: NIGEL CALL is a 62 year old female with a past medical history of hypertension, hyperlipidemia, els-dplucrt-sepqryebz diabetes mellitus, and COPD not on home O2 who presented with increasing shortness of breath, bipedal edema and cough. She was requiring BIPAP and was found to have a right sided pneumonia and was admitted for acute hypoxic respiratory failure. 07/21: Patient this morning says her breathing feels slightly better. She was off BIPAP for 4 hrs. Later this afternoon, she desaturated to low 80s. She was not in distress. She was moved to the ICU where ABG was drawn and showed acute on chronic hypercarbia with PCO of 100. She is comfortable on BIPAP. She is fully awake and well oriented x 4. No mental status changes at this time. Discussed possibility of intubation if her breathing decompensates or if she has mental status changes. 07/22: Patient's respiratory status did not deteriorate overnight. She is maintaining good saturation on BIPAP. No mental status changes despite significantly elevated PCO2. She did drop her blood pressure overnight and required low dose Levophed. Lasix was also DCed. She just had a right sided thoracenteisis and had 550 cc drained. She tolerated the procedure well. She says her SOB has slightly improved. Denies chest pain. 07/23: Overnight, she was resumed on low dose levophed (2 mics) per cardio recommendation for her right sided heart failure. Her BP went up to the 150 systolic and levophed was d/jose armando This morning, she is saturating well on BIPAP. Echo did show right sided failure. She denies chest pain. She says her breathing has slightly improved today. 07/24: She has not required any pressor the whole day yesterday. She says her breathing is much better today. Her PCO has improved down to 70 from 100. She has been compliant with BIPAP. Denies chest pain. 07/25: No acute event overnight. She says she is still SOB but continues to improve and feels better. Denies chest pain. She will be continued on BIPAP 2 hrs on/2 hrs off. Reason For Visit: ACUTE HYPOXIC RESPIRATORY FAILURE Physical Exam Vital Signs: Temp Pulse Resp BP Pulse Ox 98.6 F 101 H 16 135/70 H 92 07/25/18 08:46 07/25/18 09:19 07/25/18 09:19 07/25/18 08:46 07/25/18 09:19 Intake & Output 07/24/18 07/25/18 07/26/18 06:59 06:59 06:59 Intake Total 1530 1050 458 Output Total 0316 8345 900 Balance -295 -1525 -442 Weight 311 lb 4.683 oz 309 lb 15.519 oz General appearance: PRESENT: no acute distress, well-developed, well-nourished Head exam: PRESENT: atraumatic, normocephalic Eye exam: PRESENT: conjunctiva pink, EOMI, PERRLA. ABSENT: scleral icterus Ear exam: PRESENT: normal external ear exam Mouth exam: PRESENT: moist, tongue midline Neck exam: ABSENT: carotid bruit, JVD, lymphadenopathy, thyromegaly Respiratory exam: PRESENT: rales, rhonchi. ABSENT: wheezes Cardiovascular exam: PRESENT: RRR. ABSENT: diastolic murmur, rubs, systolic murmur Pulses: PRESENT: normal dorsalis pedis pul GI/Abdominal exam: PRESENT: normal bowel sounds, soft. ABSENT: distended, guarding, mass, organolmegaly, rebound, tenderness Rectal exam: PRESENT: deferred Extremities exam: PRESENT: +2 edema Neurological exam: PRESENT: alert, awake, oriented to person, oriented to place, oriented to time, oriented to situation, CN II-XII grossly intact. ABSENT: motor sensory deficit Results Laboratory Results: 07/25/18 10:02 07/25/18 10:02 07/25/18 07/25/18 07/25/18 09:10 10:02 10:02 WBC 7.1 RBC 5.82 H Hgb 15.9 H Hct 50.5 H MCV 87 MCH 27.2 MCHC 31.4 L RDW 19.1 H Plt Count 176 Seg Neutrophils % 81.0 H Lymphocytes % 13.5 Monocytes % 5.3 Eosinophils % 0.0 Basophils % 0.2 Absolute Neutrophils 5.8 Absolute Lymphocytes 1.0 Absolute Monocytes 0.4 Absolute Eosinophils 0.0 Absolute Basophils 0.0 Carbonic Acid 2.21 H HCO3/H2CO3 Ratio 17:1 ABG pH 7.33 L ABG pCO2 73.4 H* ABG pO2 68.9 L ABG HCO3 37.9 H ABG O2 Saturation 91.9 L ABG Base Excess 8.4 FiO2 5L Sodium 139.3 Potassium 4.6 Chloride 96 L Carbon Dioxide 37 H Anion Gap 6 BUN 17 Creatinine 0.63 Est GFR ( Amer) > 60 Est GFR (Non-Af Amer) > 60 Glucose 268 H Calcium 8.9 07/20/18 15:40 NT-Pro-B Natriuret Pep 945 H Impressions: Thoracentesis Ultrasound 07/22/18 17:32 IMPRESSION: SUCCESSFUL THORACENTESIS USING ULTRASOUND GUIDANCE. Chest/Abdomen CTA 07/23/18 16:02 IMPRESSION: 1. There is no evidence of pulmonary emboli. 2. Moderate right pleural effusion smaller left pleural effusion with atelectatic changes in both lower lobes. 3. Cardiomegaly. Chest X-Ray 07/24/18 12:55 IMPRESSION: Persistent collapse and consolidation right lower lobe with trace right pleural effusion Assessment & Plan - Diagnosis (1) Cor pulmonale Is this a current diagnosis for this admission?: Yes Plan: Echo does show right sided heart failure. She has long standing COPD. Possible ELZA. 07/24: Discussed with pulmonology. Her cor pulmonale is deemed likely from long standing, untreated COPD and possible ELZA. She may need Trilogy at home later. 07/25: Appreciate cardio recommendation. Patient will need right sided heart cath later and possible vasodilatory testing. This will be arranged when she follows up with cardio and pulm. (2) Hypotension Is this a current diagnosis for this admission?: Yes Plan: 05/21: She did require Levophed overnight. She was weaned off Levophed this morning for a few hours but did went down to 85/40s after thoracentesis and increase in BIPAP settings. Will be cautious about increasing BIPAP settings as it may reduce venous return contributing to hypotension especially with recent throracentesis. Hypotension is likely multifactorial from right sided heart failure, diuresis, increase in BIPAP settings and thoracentesis. Suspecting cor pulmonale in a long standing COPD patient. Await echo report. 05/22: She was resumed on low dose levophed (2 mics) per cardio recommendation for her right sided heart failure. Her BP went up to the 150 systolic and levophed was d/jose armando This morning, she is saturating well on BIPAP. Echo did show right sided failure. She denies chest pain. She says her breathing has slightly improved today. Resolved. (3) Acute respiratory failure with hypoxia Is this a current diagnosis for this admission?: Yes Plan: Secondary to community-acquired pneumonia with pleural effusion. 07/20: She was off BIPAP for 4 hrs. Later this afternoon, she desaturated to low 80s. She was not in distress. She was moved to the ICU where ABG was drawn and showed acute on chronic hypercarbia with PCO2 of 100. She is comfortable on BIPAP. She is fully awake and well oriented x 4. No mental status changes at this time. Discussed possibility of intubation if her breathing decompensates or if she has mental status changes. 07/21: Increase BIPAP settings to 16/8/70%. Will also consult pulmonology. 07/22: BIPAP increased to 20/8 by pulmonology. 07/24: Discussed with pulm. Patient to be on BIPAP when she is asleep. 07/25: Noted ABG today. Still hypercerbic although not as worse as when she first came in. BIPAP 2 hrs/2 hrs off today. BIPAP during sleep. (4) Acute and chronic respiratory failure with hypercapnia Is this a current diagnosis for this admission?: Yes Plan: She is not on home O2 but does admit she has not been compliance with ff-up and has not been assessed for need for home O2. ABG is suggestive of chronic CO2 retention as well. (5) Pneumonia Qualifiers: Pneumonia type: due to unspecified organism Laterality: right Lung location: lower lobe of lung Qualified Code(s): J18.1 - Lobar pneumonia, unspecified organism Is this a current diagnosis for this admission?: Yes Plan: Continue Rocephin and azithromycin. Sputum culture pending. Flu testing was negative. 07/25: Repeat chest x-ray shows persistent consolidation. May need repeat imaging in the next 2 days to reassess consolidation. (6) Hypertension Is this a current diagnosis for this admission?: Yes Plan: Patient takes amlodipine, losartan and hydrochlorothiazide at home. Discontinued amlodipine due to pedal edema. Held antihypertensives due to recent hypotension. (7) Pleural effusion Is this a current diagnosis for this admission?: Yes Plan: Right sided possible para pneumonic. 07/21: S/P right sided thoracentesis with 550 cc drained. Pleural fluid studies are consistent with transudative effusion. (8) Cirrhosis Is this a current diagnosis for this admission?: Yes Plan: CT shows possible cirrhosis. Likely from chronic passive congestion from right sided heart failure. Hepatitis panel pending. - Time Time Spent with patient: 25-34 minutes
[2018-07-25] MEDS: CEFTRIAXONE 1 GM/D5W RTU 1 GM/50 ML RTUPB IV SCH (17:18)
[2018-07-25] MEDS: ATORVASTATIN CALCIUM 20 MG TABLET PO SCH (22:52)
[2018-07-26] MEDS: ACETYLCYSTEINE 10% NEB 400 MG/4 ML VIAL NEB SCH ×4 (02:03→21:28)
[2018-07-26] MEDS: IPRATROPIUM/ALBUTEROL 0.5-2.5 MG/3 ML AMPUL NEB SCH ×4 (02:03→21:28)
[2018-07-26] MEDS: METHYLPREDNISOLONE INJ 40 MG/1 ML SDV IV SCH ×2 (05:25→17:11)
[2018-07-26] MEDS: INSULIN LISPRO 100 UNIT/ML 3 ML VIAL SUBCUT SCH ×4 (08:22→22:03)
[2018-07-26] MEDS: FONDAPARINUX SODIUM INJ 2.5 MG/0.5 ML DISP.SYRIN SUBCUT SCH (08:22)
[2018-07-26] MEDS: ASPIRIN 81 MG TABLET, ENT COATED PO SCH (09:51)
[2018-07-26] MEDS: ACETAZOLAMIDE 250 MG TABLET PO SCH (09:51)
[2018-07-26] MEDS: AZITHROMYCIN 250 MG TABLET PO SCH (12:54)
[2018-07-26 14:38] LABS: HEPATITIS A AB IGM Negative (Negative); HEPATITIS B CORE AB IGM Negative (Negative); HEPATITS B SURFACE ANTIGEN Negative (Negative)
[2018-07-26 14:51] LABS: HEPATITIS C VIRUS ANTIBODY <0.1 s/co ratio (0.0-0.9)
--- NOTE | 2018-07-26 15:58 | PDOC PROGRESS REPORT ---
Subjective Progress Note for:: 07/26/18 Subjective:: NIGEL CALL is a 62 year old female with a past medical history of hypertension, hyperlipidemia, [id number]-[id number] diabetes mellitus, and COPD not on home O2 who presented with increasing shortness of breath, bipedal edema and cough. She was requiring BIPAP and was found to have a right sided pneumonia and was admitted for acute hypoxic respiratory failure. 07/21: Patient this morning says her breathing feels slightly better. She was off BIPAP for 4 hrs. Later this afternoon, she desaturated to low 80s. She was not in distress. She was moved to the ICU where ABG was drawn and showed acute on chronic hypercarbia with PCO of 100. She is comfortable on BIPAP. She is fully awake and well oriented x 4. No mental status changes at this time. Discussed possibility of intubation if her breathing decompensates or if she has mental status changes. 07/22: Patient's respiratory status did not deteriorate overnight. She is maintaining good saturation on BIPAP. No mental status changes despite significantly elevated PCO2. She did drop her blood pressure overnight and required low dose Levophed. Lasix was also DCed. She just had a right sided thoracenteisis and had 550 cc drained. She tolerated the procedure well. She says her SOB has slightly improved. Denies chest pain. 07/23: Overnight, she was resumed on low dose levophed (2 mics) per cardio recommendation for her right sided heart failure. Her BP went up to the 150 systolic and levophed was d/jose armando This morning, she is saturating well on BIPAP. Echo did show right sided failure. She denies chest pain. She says her breathing has slightly improved today. 07/24: She has not required any pressor the whole day yesterday. She says her breathing is much better today. Her PCO2 has improved down to 70 from 100. She has been compliant with BIPAP. Denies chest pain. 07/25: She says she is still SOB but continues to improve and feels better. Denies chest pain. 07/26: No acute event overnight. She continues to improve albeit still has SOB. She will be continued on BIPAP 2 hrs on/2 hrs off. Reason For Visit: ACUTE HYPOXIC RESPIRATORY FAILURE Physical Exam Vital Signs: Temp Pulse Resp BP Pulse Ox 98.2 F 103 H 18 105/70 92 07/26/18 15:35 07/26/18 15:35 07/26/18 15:35 07/26/18 15:35 07/26/18 15:35 Intake & Output 07/25/18 07/26/18 07/27/18 06:59 06:59 06:59 Intake Total 1050 1866 Output Total 2572 0805 Balance -1525 -609 Weight 309 lb 15.519 oz 307 lb 15.772 oz General appearance: PRESENT: no acute distress, well-developed, well-nourished Head exam: PRESENT: atraumatic, normocephalic Eye exam: PRESENT: conjunctiva pink, EOMI, PERRLA. ABSENT: scleral icterus Ear exam: PRESENT: normal external ear exam Mouth exam: PRESENT: moist, tongue midline Neck exam: ABSENT: carotid bruit, JVD, lymphadenopathy, thyromegaly Respiratory exam: PRESENT: rales, rhonchi. ABSENT: wheezes Cardiovascular exam: PRESENT: RRR. ABSENT: diastolic murmur, rubs, systolic murmur Pulses: PRESENT: normal dorsalis pedis pul GI/Abdominal exam: PRESENT: normal bowel sounds, soft. ABSENT: distended, guarding, mass, organolmegaly, rebound, tenderness Extremities exam: PRESENT: +2 edema Neurological exam: PRESENT: alert, awake, oriented to person, oriented to place, oriented to time, oriented to situation, CN II-XII grossly intact. ABSENT: motor sensory deficit Results Laboratory Results: 07/25/18 10:02 07/25/18 10:02 07/22/18 12:25 Fluid pH 7.4 07/22/18 12:25 Pleural Fluid AFB Smear Concentration - Final 07/22/18 12:25 Pleural Fluid Acid Fast Bacilli Smear - Final 07/22/18 12:25 Pleural Fluid Gram Stain - Final 07/22/18 12:25 Pleural Fluid Body Fluid Culture - Final NO AEROBIC OR ANAEROBIC ORGANISMS RECOVERED 07/20/18 18:20 Blood Blood Culture - Final NO GROWTH IN 5 DAYS 07/20/18 15:40 Blood Blood Culture - Final NO GROWTH IN 5 DAYS 07/20/18 15:40 NT-Pro-B Natriuret Pep 945 H Impressions: Thoracentesis Ultrasound 07/22/18 17:32 IMPRESSION: SUCCESSFUL THORACENTESIS USING ULTRASOUND GUIDANCE. Chest/Abdomen CTA 07/23/18 16:02 IMPRESSION: 1. There is no evidence of pulmonary emboli. 2. Moderate right pleural effusion smaller left pleural effusion with atelectatic changes in both lower lobes. 3. Cardiomegaly. Chest X-Ray 07/24/18 12:55 IMPRESSION: Persistent collapse and consolidation right lower lobe with trace right pleural effusion Assessment & Plan - Diagnosis (1) Cor pulmonale Is this a current diagnosis for this admission?: Yes Plan: Echo does show right sided heart failure. She has long standing COPD. Possible ELZA. 07/24: Discussed with pulmonology. Her cor pulmonale is deemed likely from long standing, untreated COPD and possible ELZA. She may need Trilogy at home later. 07/25: Appreciate cardio recommendation. Patient will need right sided heart cath later and possible vasodilatory testing. This will be arranged when she follows up with cardio and pulm later. 07/26: DC acetazolamide today. Continue BIPAP. Pulmonology is working on getting her a Trilogy for home upon discharge. (2) Hypotension Is this a current diagnosis for this admission?: Yes Plan: 05/21: She did require Levophed overnight. She was weaned off Levophed this morning for a few hours but did went down to 85/40s after thoracentesis and increase in BIPAP settings. Will be cautious about increasing BIPAP settings as it may reduce venous return contributing to hypotension especially with recent throracentesis. Hypotension is likely multifactorial from right sided heart failure, diuresis, increase in BIPAP settings and thoracentesis. Suspecting cor pulmonale in a long standing COPD patient. Await echo report. 05/22: She was resumed on low dose levophed (2 mics) per cardio recommendation for her right sided heart failure. Her BP went up to the 150 systolic and levophed was d/jose armando This morning, she is saturating well on BIPAP. Echo did show right sided failure. She denies chest pain. She says her breathing has slightly improved today. Resolved. (3) Acute respiratory failure with hypoxia Is this a current diagnosis for this admission?: Yes Plan: Secondary to community-acquired pneumonia with pleural effusion. 07/20: She was off BIPAP for 4 hrs. Later this afternoon, she desaturated to low 80s. She was not in distress. She was moved to the ICU where ABG was drawn and showed acute on chronic hypercarbia with PCO2 of 100. She is comfortable on BIPAP. She is fully awake and well oriented x 4. No mental status changes at this time. Discussed possibility of intubation if her breathing decompensates or if she has mental status changes. 07/21: Increase BIPAP settings to 16/8/70%. Will also consult pulmonology. 07/22: BIPAP increased to 20/8 by pulmonology. 07/24: Discussed with pulm. Patient to be on BIPAP when she is asleep. 07/25: Noted ABG today. Still hypercerbic although not as worse as when she first came in. BIPAP 2 hrs/2 hrs off today. BIPAP during sleep. (4) Acute and chronic respiratory failure with hypercapnia Is this a current diagnosis for this admission?: Yes Plan: She is not on home O2 but does admit she has not been compliance with ff-up and has not been assessed for need for home O2. ABG is suggestive of chronic CO2 retention as well. (5) Pneumonia Qualifiers: Pneumonia type: due to unspecified organism Laterality: right Lung location: lower lobe of lung Qualified Code(s): J18.1 - Lobar pneumonia, unspecified organism Is this a current diagnosis for this admission?: Yes Plan: Continue Rocephin and azithromycin. Sputum culture pending. Flu testing was negative. 07/25: Repeat chest x-ray shows persistent consolidation. 07/26: Ordered for repeat imaging tomorrow to reassess consolidation and recurrence of pleural effusion. (6) Hypertension Is this a current diagnosis for this admission?: Yes Plan: Patient takes amlodipine, losartan and hydrochlorothiazide at home. Discontinued amlodipine due to pedal edema. Held antihypertensives due to recent hypotension. (7) Pleural effusion Is this a current diagnosis for this admission?: Yes Plan: Right sided possible para pneumonic. 07/21: S/P right sided thoracentesis with 550 cc drained. Pleural fluid studies are consistent with transudative effusion. (8) Cirrhosis Is this a current diagnosis for this admission?: Yes Plan: CT shows possible cirrhosis. Likely from chronic passive congestion from right sided heart failure. Hepatitis panel pending. - Time Time Spent with patient: 25-34 minutes
[2018-07-26] MEDS: CEFTRIAXONE 1 GM/D5W RTU 1 GM/50 ML RTUPB IV SCH (17:10)
--- NOTE | 2018-07-26 20:59 | Progress Note ---
Provider Note Provider Note: CARDIOLOGY PROGRESS NOTE by Dr. Alesha Farris on 07/26/2018. SUBJECTIVE: The patient states her shortness of breath is improved but still has shortness of breath with exertion. It is difficult to assess if the patient has orthopnea, since the patient states that she is never been able to lie flat on her back due to her back pain which is chronic. She denies any chest pain or discomfort. There is no PND. There is no arrhythmias seen on the monitor. There is no TIA CVA symptoms. Her leg edema is much improved. Her blood pressure is low normal. PHYSICAL EXAMINATION: The patient is morbidly obese. She is well-groomed at present and noted to be in no acute distress. Selected Entries 07/26/18 15:35 Temperature 98.2 F Temperature Axillary Source Pulse Rate 103 H Respiratory 18 Rate Blood Pressure 81 Mean BP Location Left Arm BP Position Sitting O2 Sat by Pulse 92 Oximetry Oxygen Flow 3.50 Rate Oxygen Delivery Nasal Cannula Method HEAD: Is atraumatic normocephalic. EYES: Pupils are equal round regular reactive to light accommodation. Extraocular movements are normal. There is no conjunctival pallor. There is no scleral icterus. ENT is negative. Neck is supple there is mild JVD present. Carotids are equal there is no bruits. There is no lymphadenopathy. There is no accessory muscle respiration use. Trachea central. There is no goiter. Lungs show diminished air entry prolonged expiration, otherwise clear to auscultation percussion without any rhonchi rales or wheezing. HEART: S1-S2 is heard. There is no S3 gallop. There is no S4 gallop. There is murmur of tricuspid regurgitation present. There is mild aortic sclerosis murmur. There is no rub. Note A2 is well preserved EXTREMITIES: Femorals are deep. Femorals are diminished. There is no femoral bruits. Leg pulses are diminished. There is trace pedal edema. There is no DVT or cellulitis. There is no calf tenderness. There is no sinus or clubbing. 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 PSYCHIATRIC: The patient judgment and insight are intact. Her affect is normal. 07/25/18 07/26/18 07/26/18 10:02 12:58 16:06 WBC 7.1 RBC 5.82 H Hgb 15.9 H Hct 50.5 H Plt Count 176 POC Glucose 272 H 183 H IMPRESSION/RECOMMENDATION: 1. Cor pulmonale: This is secondary to severe pulmonary hypertension. Continue current treatment. Judicious use of diuretics. Would recommend patient as an outpatient be referred to the pulmonary hypertension clinic in [facility] for possible right heart catheterization directed medications for her severe pulmonary hypertension. Note that the CT scan of the chest shows no evidence of pulmonary emboli. 2. Acute on chronic respiratory failure. 3. History of hypertension. 4. Patient most likely has sleep apnea: Would recommend empiric BiPAP at night when she is sleeping. 5. Morbid obesity: Later patient may benefit from diet and exercise, and possibly bariatric surgery for weight loss. 6. History of asthma/COPD: Continue current treatment. 7. Diabetes mellitus: Continue antidiabetic medication and monitor blood sugars. Medications reviewed. Management plan discussed with the the hospitalist attending physician. Note medical decision making is of high complexity. 40 minutes spent on this patient with more than 50% of time spent in direct patient care. Note the patient is a full code. Her son is her surrogate healthcare decision maker.
[2018-07-26] MEDS: ATORVASTATIN CALCIUM 20 MG TABLET PO SCH (22:03)
[2018-07-27] MEDS: IPRATROPIUM/ALBUTEROL 0.5-2.5 MG/3 ML AMPUL NEB SCH ×4 (02:32→20:31)
[2018-07-27] MEDS: ACETYLCYSTEINE 10% NEB 400 MG/4 ML VIAL NEB SCH ×4 (03:05→20:31)
[2018-07-27] MEDS: METHYLPREDNISOLONE INJ 40 MG/1 ML SDV IV SCH ×2 (06:10→17:11)
[2018-07-27] MEDS: INSULIN LISPRO 100 UNIT/ML 3 ML VIAL SUBCUT SCH ×4 (08:09→23:20)
[2018-07-27] MEDS: ASPIRIN 81 MG TABLET, ENT COATED PO SCH (10:17)
[2018-07-27] MEDS: FONDAPARINUX SODIUM INJ 2.5 MG/0.5 ML DISP.SYRIN SUBCUT SCH (10:17)
[2018-07-27] MEDS: AZITHROMYCIN 250 MG TABLET PO SCH (12:20)
[2018-07-27] MEDS: CEFTRIAXONE 1 GM/D5W RTU 1 GM/50 ML RTUPB IV SCH (17:11)
--- NOTE | 2018-07-27 17:27 | PDOC PROGRESS REPORT ---
Subjective Progress Note for:: 07/27/18 Subjective:: NIGEL CALL is a 62 year old female with a past medical history of hypertension, hyperlipidemia, [id number] diabetes mellitus, and COPD not on home O2 who presented with increasing shortness of breath, bipedal edema and cough. She was requiring BIPAP and was found to have a right sided pneumonia and was admitted for acute hypoxic respiratory failure. No acute events overnight. Patient is stating she had a good night sleep while using BiPAP. Complaining of dyspnea on exertion. Denies any fever, chills, nausea, vomiting, diarrhea, constipation or any urinary symptoms. Reason For Visit: ACUTE HYPOXIC RESPIRATORY FAILURE Physical Exam Vital Signs: Temp Pulse Resp BP Pulse Ox 98.5 F 109 H 20 150/79 H 90 L 07/27/18 15:36 07/27/18 15:36 07/27/18 15:36 07/27/18 15:36 07/27/18 15:36 Intake & Output 07/26/18 07/27/18 07/28/18 06:59 06:59 06:59 Intake Total 1866 290 Output Total 2475 900 Balance -609 -610 Weight 139.7 kg 138 kg General appearance: PRESENT: morbidly obese Head exam: PRESENT: atraumatic, normocephalic Neck exam: ABSENT: carotid bruit, JVD, lymphadenopathy, thyromegaly Respiratory exam: PRESENT: clear to auscultation ba. ABSENT: rales, rhonchi, wheezes Cardiovascular exam: PRESENT: RRR. ABSENT: diastolic murmur, rubs, systolic murmur GI/Abdominal exam: PRESENT: normal bowel sounds, soft. ABSENT: distended, guarding, mass, organolmegaly, rebound, tenderness Extremities exam: PRESENT: full ROM, +1 edema. ABSENT: calf tenderness, clubbing, pedal edema Neurological exam: PRESENT: alert, awake, oriented to person, oriented to place, oriented to time, oriented to situation, CN II-XII grossly intact. ABSENT: motor sensory deficit Results Laboratory Results: 07/25/18 10:02 07/25/18 10:02 07/22/18 12:25 Pleural Fluid AFB Smear Concentration - Final 07/22/18 12:25 Pleural Fluid Acid Fast Bacilli Smear - Final 07/20/18 15:40 NT-Pro-B Natriuret Pep 945 H Impressions: Thoracentesis Ultrasound 07/22/18 17:32 IMPRESSION: SUCCESSFUL THORACENTESIS USING ULTRASOUND GUIDANCE. Chest/Abdomen CTA 07/23/18 16:02 IMPRESSION: 1. There is no evidence of pulmonary emboli. 2. Moderate right pleural effusion smaller left pleural effusion with atelectatic changes in both lower lobes. 3. Cardiomegaly. Chest X-Ray 07/24/18 12:55 IMPRESSION: Persistent collapse and consolidation right lower lobe with trace right pleural effusion Assessment & Plan - Diagnosis (1) Cor pulmonale Is this a current diagnosis for this admission?: Yes Plan: Secondary to severe pulmonary hypertension. 07/21/2018 2D echo LVEF greater than 65%. RSVP 69-74 mmHg. Consistent with right-sided heart failure likely due to long-standing COPD/ELZA. Pulmonary has been consulted. Patient waiting to be discharged home once oxygen and trilogy have been arranged. Cardiology consulted. Recommendation is outpatient referral [facility] pulmonary hypertension clinic for possible right heart catheterization. 07/26: Acetazolamide was DC'd. Continue BIPAP. Start on low-dose furosemide guided by vitals titrate up as tolerated. Cardiac diet, volume restriction. We will get nocturnal pulse symmetry for arrangement of trilogy upon home dis charge. (2) Acute respiratory failure with hypoxia Is this a current diagnosis for this admission?: Yes Plan: Secondary to community-acquired pneumonia with pleural effusion complicated by underlying severe pulmonary hypertension. SPO2 90-94% on 3-3.5 L/min NC, FiO2 32%. Continue BiPAP, supplemental oxygen, nebs, treatment for underlying pneumonia. (3) Acute and chronic respiratory failure with hypercapnia Is this a current diagnosis for this admission?: Yes Plan: ABG shows admission persistent hypercarbia. Likely due to ELZA/obesity hypoventilation. Not on home oxygen. Patient pending home discharge on trilogy and supplemental oxygen. Outpatient pulmonary follow-up. (4) Hypertension Is this a current diagnosis for this admission?: Yes Plan: Continue losartan, hydrochlorothiazide. Amlodipine was discontinued due to lower extremity edema. Monitor vitals. Adjust meds as needed. (5) Pleural effusion Is this a current diagnosis for this admission?: Yes Plan: Right sided possible para pneumonic. 07/21: S/P right sided thoracentesis with 550 cc drained. Pleural fluid studies are consistent with transudative effusion. (6) Pneumonia Qualifiers: Pneumonia type: due to unspecified organism Laterality: right Lung location: lower lobe of lung Qualified Code(s): J18.1 - Lobar pneumonia, unspecified organism Is this a current diagnosis for this admission?: Yes Plan: Continue Rocephin and azithromycin. Cultures from admission negative. Pending pleural fluid cultures. Flu testing was negative. 07/25: Repeat chest x-ray shows persistent consolidation. (7) Cirrhosis Is this a current diagnosis for this admission?: Yes Plan: Likely due to chronic passive congestion caused by underlying severe pulmonary hypertension. Hepatitis panel negative. Coags and platelets within normal limits. Continue treating for underlying pulmonary hypertension.
--- NOTE | 2018-07-27 20:11 | Progress Note ---
Provider Note Provider Note: CARDIOLOGY PROGRESS NOTE by Dr. Alesha Farris on 07/27/2018. SUBJECTIVE: The patient states her shortness of breath is improved. She is not on the BiPAP all the time. She uses it as needed. On questioning the patient there is high suspicion that the patient does have does have sleep apnea. She denies any chest pain. Her leg edema is much improved. There is orthopnea present although it is not clear since the patient states that chronically she cannot lie on a black likely due to her chronic back pain. There is no wheezing or cough or sputum production. There is no TIA CVA symptoms. There is no ventricular arrhythmias or atrial arrhythmia seen on the monitor. PHYSICAL EXAMINATION: The patient is morbidly obese. In no acute distress. She is well-groomed. Selected Entries 07/27/18 07:55 Temperature Axillary Source Pulse Rate 96 Respiratory 18 Rate Blood Pressure 147/95 H Blood Pressure 112 Mean BP Location Left Arm BP Position Sitting O2 Sat by Pulse 92 Oximetry Oxygen Flow 3.00 Rate Oxygen Delivery Nasal Cannula Method HEAD: Is atraumatic normocephalic. EYES: Pupils are equal round regular reactive to light accommodation. Extraocular movements are normal. There is no conjunctival pallor. There is no scleral icterus. ENT is negative. Oral cavity shows Mallampati class IV score. Neck is supple there is mild JVD present. Carotids are equal there is no bruits. There is no lymphadenopathy. There is no accessory muscle respiration use. Trachea central. There is no goiter. Lungs show diminished air entry prolonged expiration, otherwise clear to auscultation percussion without any rhonchi rales or wheezing. HEART: S1-S2 is heard. There is no S3 gallop. There is no S4 gallop. There is murmur of tricuspid regurgitation present. There is mild aortic sclerosis murmur. There is no rub. Note A2 is well preserved EXTREMITIES: Femorals are deep. Femorals are diminished. There is no femoral bruits. Leg pulses are diminished. There is trace pedal edema. There is no DVT or cellulitis. There is no calf tenderness. There is no sinus or clubbing. 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 PSYCHIATRIC: The patient judgment and insight are intact. Her affect is normal. 07/27/18 06:44 POC Glucose 179 H IMPRESSION/RECOMMENDATION: 1. Cor pulmonale: This is secondary to severe pulmonary hypertension. Continue current treatment. Judicious use of diuretics. Would recommend patient as an outpatient be referred to the pulmonary hypertension clinic in [facility] for possible right heart catheterization directed medications for her severe pulmonary hypertension. Note that the CT scan of the chest shows no evidence of pulmonary emboli. The patient blood pressure is good at present, and will start the patient on lisinopril 5 mg p.o. every 12 hours. Also would add Norvasc to the patient's regimen. 2. Acute on chronic respiratory failure. 3. History of hypertension. 4. Patient most likely has sleep apnea: Would recommend empiric BiPAP at night when she is sleeping. 5. Morbid obesity: Later patient may benefit from diet and exercise, and possibly bariatric surgery for weight loss. 6. History of asthma/COPD: Continue current treatment. 7. Diabetes mellitus: Continue antidiabetic medication and monitor blood sugars. Medications reviewed. Management plan discussed with the the hospitalist attending physician. Note medical decision making is of high complexity. 40 minutes spent on this patient with more than 50% of time spent in direct patient care. Note the patient is a full code. Her son is her surrogate healthcare decision maker.
[2018-07-27] MEDS: BUMETANIDE INJ/PF 1 MG/4 ML SDV IV SCH (22:08)
[2018-07-27] MEDS: ATORVASTATIN CALCIUM 20 MG TABLET PO SCH (22:09)
[2018-07-27] MEDS: LISINOPRIL 5 MG TABLET PO SCH (22:09)
[2018-07-28] MEDS: ACETYLCYSTEINE 10% NEB 400 MG/4 ML VIAL NEB SCH ×3 (01:24→13:38)
[2018-07-28] MEDS: IPRATROPIUM/ALBUTEROL 0.5-2.5 MG/3 ML AMPUL NEB SCH ×3 (01:24→13:38)
[2018-07-28 04:54] LABS: ABSOLUTE LYMPHOCYTES (AUTO) 1.5 10^3/uL (0.5-4.7); ABSOLUTE MONOCYTES (AUTO) 0.8 10^3/uL (0.1-1.4); ABSOLUTE NEUT (AUTO) 5.3 10^3/uL (1.7-8.2); BASOPHILS % (AUTO) 0.2 % (0-2); HEMOGLOBIN 15.8 g/dL (12.0-15.5); LYMPHOCYTES % (AUTO) 20.2 % (13-45); MEAN CORPUSCULAR HEMOGLOBIN 26.9 pg (27.0-33.4); MEAN CORPUSCULAR HGB CONC 31.7 g/dL (32.0-36.0); MEAN CORPUSCULAR VOLUME 85 fl (80-97); MONOCYTES % (AUTO) 10.3 % (3-13); PLATELET COUNT 155 10^3/uL (150-450); RED BLOOD COUNT 5.88 10^6/uL (3.72-5.28); RED CELL DISTRIBUTION WIDTH 19.3 % (11.5-14.0); SEGMENTED NEUTROPHILS % (AUTO) 69.3 % (42-78); TOTAL CELLS COUNTED % (AUTO) 100 %; WHITE BLOOD COUNT 7.7 10^3/uL (4.0-10.5)
[2018-07-28 05:17] LABS: ALANINE AMINOTRANSFERASE 20 U/L (9-52); ALBUMIN 3.2 g/dL (3.5-5.0); ALKALINE PHOSPHATASE 46 U/L (38-126); ANION GAP 5 (5-19); ASPARTATE AMINO TRANSFERASE 13 U/L (14-36); BILIRUBIN,DIRECT 0.3 mg/dL (0.0-0.4); BILIRUBIN,TOTAL 0.9 mg/dL (0.2-1.3); BLOOD UREA NITROGEN 17 mg/dL (7-20); CARBON DIOXIDE 37 mmol/L (22-30); CHLORIDE 98 mmol/L (98-107); GLUCOSE 250 mg/dL (75-110); SODIUM 139.9 mmol/L (137-145); TOTAL PROTEIN 5.4 g/dL (6.3-8.2)
[2018-07-28] MEDS: METHYLPREDNISOLONE INJ 40 MG/1 ML SDV IV SCH (05:23)
[2018-07-28] MEDS: INSULIN LISPRO 100 UNIT/ML 3 ML VIAL SUBCUT SCH ×3 (09:26→15:25)
[2018-07-28] MEDS: FONDAPARINUX SODIUM INJ 2.5 MG/0.5 ML DISP.SYRIN SUBCUT SCH (09:26)
[2018-07-28] MEDS: BUMETANIDE INJ/PF 1 MG/4 ML SDV IV SCH (09:27)
[2018-07-28] MEDS: ASPIRIN 81 MG TABLET, ENT COATED PO SCH (09:28)
[2018-07-28] MEDS: LISINOPRIL 5 MG TABLET PO SCH (09:28)
[2018-07-28] MEDS: CALCIUM CARBONATE 500 MG TAB.CHEW PO PRN (09:49)
[2018-07-28] MEDS ORDERED: AMLODIPINE BESYLATE 2.5 MG TABLET PO SCH (10:00)
--- NOTE | 2018-07-28 10:56 | PDOC PROGRESS REPORT ---
Subjective Progress Note for:: 07/28/18 Reason For Visit: ACUTE HYPOXIC RESPIRATORY FAILURE Physical Exam Vital Signs: Temp Pulse Resp BP Pulse Ox 98.3 F 99 18 141/88 H 91 L 07/28/18 07:31 07/28/18 08:53 07/28/18 08:53 07/28/18 07:31 07/28/18 08:53 Pulse Oximeter Nocturnal Start: 07/27/18 16:40 Freq: RTQ4 Status: Active Protocol: Document 07/28/18 08:53 [facility] (Rec: 07/28/18 10:35 [facility] [id number]) Nocturnal Pulse Oximetry Equipment Usage Equipment Standby Continuous SpO2 Machine # na Intake & Output 07/27/18 07/28/18 07/29/18 06:59 06:59 06:59 Intake Total 290 750 Output Total 900 3640 Balance -610 -2890 Weight 138 kg 135.3 kg General appearance: PRESENT: no acute distress, disheveled, morbidly obese Head exam: PRESENT: atraumatic, normocephalic Eye exam: PRESENT: conjunctiva pale, EOMI Mouth exam: PRESENT: dry mucosa, neck supple, tongue midline Neck exam: ABSENT: carotid bruit, JVD, lymphadenopathy, thyromegaly, tracheal deviation, tracheostomy Respiratory exam: PRESENT: decreased breath sounds, prolonged expiratory phas, rhonchi, unlabored. ABSENT: retraction, stridor Cardiovascular exam: PRESENT: RRR, +S1, +S2 Pulses: PRESENT: normal radial pulses GI/Abdominal exam: PRESENT: soft. ABSENT: tenderness Extremities exam: ABSENT: clubbing, joint swelling, pedal edema Musculoskeletal exam: ABSENT: deformity, dislocation Neurological exam: PRESENT: awake Skin exam: PRESENT: dry, warm Results Laboratory Results: 07/28/18 04:43 07/28/18 04:43 07/28/18 07/28/18 07/28/18 04:43 04:43 07:05 WBC 7.7 RBC 5.88 H Hgb 15.8 H Hct 50.0 H MCV 85 MCH 26.9 L MCHC 31.7 L RDW 19.3 H Plt Count 155 Seg Neutrophils % 69.3 Lymphocytes % 20.2 Monocytes % 10.3 Eosinophils % 0.0 Basophils % 0.2 Absolute Neutrophils 5.3 Absolute Lymphocytes 1.5 Absolute Monocytes 0.8 Absolute Eosinophils 0.0 Absolute Basophils 0.0 Carbonic Acid Cancelled HCO3/H2CO3 Ratio Cancelled ABG pH Cancelled ABG pCO2 Cancelled ABG pO2 Cancelled ABG HCO3 Cancelled ABG O2 Saturation Cancelled ABG Base Excess Cancelled FiO2 Cancelled Sodium 139.9 Potassium 4.0 Chloride 98 Carbon Dioxide 37 H Anion Gap 5 BUN 17 Creatinine 0.54 Est GFR ( Amer) > 60 Est GFR (Non-Af Amer) > 60 Glucose 250 H Calcium 9.0 Magnesium 1.8 Total Bilirubin 0.9 AST 13 L ALT 20 Alkaline Phosphatase 46 Total Protein 5.4 L Albumin 3.2 L 07/20/18 15:40 NT-Pro-B Natriuret Pep 945 H Impressions: Thoracentesis Ultrasound 07/22/18 17:32 IMPRESSION: SUCCESSFUL THORACENTESIS USING ULTRASOUND GUIDANCE. Chest/Abdomen CTA 07/23/18 16:02 IMPRESSION: 1. There is no evidence of pulmonary emboli. 2. Moderate right pleural effusion smaller left pleural effusion with atelectatic changes in both lower lobes. 3. Cardiomegaly. Chest X-Ray 07/24/18 12:55 IMPRESSION: Persistent collapse and consolidation right lower lobe with trace right pleural effusion Assessment & Plan - Diagnosis (1) Acute and chronic respiratory failure with hypercapnia Is this a current diagnosis for this admission?: Yes Plan: The above patient has failed BiPAP with a patent airway. This patient would benefit from noninvasive mechanical ventilation via the trilogy AVAPS/AE and faster responding AVAPS rates. The trilogy is able to provide a target tidal volume and also adjusting the EPAP pressures to maintain a patent airway as well as an oral backup rate this machine will help improve PaCO2 levels. The severity of the patient's condition will lead to future hospitalizations and readmissions as well as life-threatening situations without the use of this device day and night. Trilogy home vent needed for hypercapnic respiratory failure[facility] (2) Acute respiratory failure with hypoxia Is this a current diagnosis for this admission?: No (3) Hypertension Is this a current diagnosis for this admission?: Yes Plan: Stable at this time (4) Pleural effusion Is this a current diagnosis for this admission?: Yes Plan: resolved (5) Pneumonia Qualifiers: Pneumonia type: due to unspecified organism Laterality: right Lung location: lower lobe of lung Qualified Code(s): J18.1 - Lobar pneumonia, unspecified organism Is this a current diagnosis for this admission?: Yes Plan: Improved
--- NOTE | 2018-07-28 15:39 | RADIOLOGY REPORT (SQ) ---
EXAM DESCRIPTION: U/S ABDOMEN LTD W/DOPPLER COMPLETED DATE/TIME: 07/28/2018 3:25 pm REASON FOR STUDY: cirhosis COMPARISON: None. TECHNIQUE: Dynamic and static grayscale images acquired of the abdomen and recorded on PACS. Additio nal selected color Doppler and spectral images recorded. LIMITATIONS: The examination is very limited due to patient body habitus. FINDINGS: PANCREAS: Not visualized due to patient body habitus. LIVER: Limited examination due to patient body habitus. Diffuse increased echotexture of the liver parenchyma may be related to the patient's underlying liver disease. The liver measures 18.7 cm in l ength, mildly prominent in size. LIVER VASCULATURE: Normal directional flow of the main portal vein and hepatic veins. GALLBLADDER: Small amount of gallbladder sludge. The gallbladder wall measures 2.5 mm, normal wall thickness. No pericholecystic fluid. ULTRASOUND-DETECTED MOLINA'S SIGN: Negative. INTRAHEPATIC DUCTS AND COMMON DUCT: CBD measures 8.1 mm in diameter and is dilated. The intrahepatic ducts normal caliber. No filling defects. AORTA: Not visualized due to the patient's body habitus. RIGHT KIDNEY: The right kidney measures 10.5 cm in length, normal size. Normal echogenicity. No juanita id or suspicious masses. No hydronephrosis. No calcifications. PERITONEAL AND RIGHT PLEURAL SPACE: No ascites or effusions. OTHER: No other significant findings. IMPRESSION: 1. The examination is very limited due to patient body habitus. The pancreas, abdomina l aorta are not visualized. 2. Very limited examination of the liver. Diffuse increased echogenicity of the liver, may be relat ed to the patient's underlying liver disease. Hepatomegaly. 3. Gallbladder sludge. 4. The common bile duct is dilated measuring 8.1 mm in diameter. Correlation suggested. TECHNICAL DOCUMENTATION: JOB ID: [id number] [employer]- All Rights Reserved Reading location - IP/workstation name: [email or web address]
--- NOTE | 2018-07-28 18:43 | PDOC DISCHARGE SUMMARY ---
General - Admit/Disc Date/PCP Admission Date/Primary Care Provider: 07/20/18 18:10 OLE CARTY MD Discharge Date: 07/28/18 - Discharge Diagnosis (1) Cor pulmonale Is this a current diagnosis for this admission?: Yes (2) Acute respiratory failure with hypoxia Is this a current diagnosis for this admission?: No (3) Acute and chronic respiratory failure with hypercapnia Is this a current diagnosis for this admission?: Yes (4) Hypertension Is this a current diagnosis for this admission?: Yes (5) Pleural effusion Is this a current diagnosis for this admission?: Yes (6) Pneumonia Is this a current diagnosis for this admission?: Yes (7) Cirrhosis Is this a current diagnosis for this admission?: Yes - Additional Information Resuscitation Status: Full Code Discharge Diet: Cardiac, Diabetic Discharge Activity: Activity As Tolerated, Balance Activity w/Rest, Weigh Daily Prescriptions: Amlodipine Besylate [Norvasc 2.5 mg Tablet] 2.5 mg PO DAILY 30 Days #30 tablet Bumetanide [Bumex 0.5 mg Tablet] 1 tab PO DAILY 10 Days #10 tab Lisinopril [Prinivil 5 mg Tablet] 5 mg PO Q12 30 Days #60 tablet Home Medications: Aspirin [Adult Aspirin] 81 mg PO DAILY 07/20/18 Atorvastatin Calcium [Lipitor 20 mg Tablet] 20 mg PO QHS 07/20/18 Metformin HCl [Glucophage 500 mg Tablet] 1,000 mg PO BID 07/20/18 Amlodipine Besylate [Norvasc 2.5 mg Tablet] 2.5 mg PO DAILY 30 Days #30 tablet 07/28/18 Bumetanide [Bumex 0.5 mg Tablet] 1 tab PO DAILY 10 Days #10 tab 07/28/18 Lisinopril [Prinivil 5 mg Tablet] 5 mg PO Q12 30 Days #60 tablet 07/28/18 History of Present Illness History of Present Illness: NIGEL CALL is a 62 year old female with a past medical history of hypertens ion, hyperlipidemia, [id number] diabetes mellitus, and COPD not on home O2 who presented with increasing shortness of breath, bipedal edema and cough. She was requiring BIPAP and was found to have a right sided pneumonia and was admitted for acute hypoxic respiratory failure. Hospital Course Hospital Course: (1) Cor pulmonale Secondary to severe pulmonary hypertension. 07/21/2018 2D echo LVEF greater than 65%. RSVP 69-74 mmHg. Consistent with right-sided heart failure likely due to long-standing COPD/ELZA. Pulmonary has been consulted. Patient was discharged with home once oxygen and trilogy. Equipment were dropped off her to her home before discharge. Cardiology consulted. Recommendation is outpatient referral [facility] pulmonary hypertension clinic for possible right heart catheterization. Nursing staff tried to make an appointment for her at the pulmonary clinic at [facility] for a right heart catheterization unfortunately they were told that she needs to see a food and nutrition services assistant at [facility] as outpatient and then referred to them for possible right heart catheterization. An appointment with Dr. Gamble will be made for her here at [facility]. 07/26: Acetazolamide was DC'd. Started on Bumex as patient is allergic to latex and furosemide is contraindicated. Patient had a negative fluid balance of 3 L on discharge. She was advised to continue Bumex 0.5 mg p.o. daily but she was cautioned to check her blood pressure and make sure her blood pressure does not drop. He was provided with home health, nurse, nurse aide and physical therapy. Advised on cardiac diet and volume restriction. Was seen by Dr. William here while inpatient and an outpatient appointment was made for her to follow-up with him. (2) Acute respiratory failure with hypoxia Secondary to community-acquired pneumonia with pleural effusion complicated by underlying severe pulmonary hypertension. SPO2 90-94% on 3-3.5 L/min NC, FiO2 32%. Continued BiPAP, supplemental oxygen, nebs, treatment for underlying pneumonia. Patient was to restart her home meds on discharge. (3) Acute and chronic respiratory failure with hypercapnia ABG shows admission persistent hypercarbia. Likely due to ELZA/obesity hypoventilation. Not on home oxygen. Was discharged on home oxygen, trilogy. Outpatient follow-up with pulmonary. (4) Hypertension Start on lisinopril, low-dose amlodipine to mix 0.5 daily for 10 days to follow- up with PCP for readjustment of her medications. (5) Pleural effusion Right sided possible para pneumonic. 07/21: S/P right sided thoracentesis with 550 cc drained. Pleural fluid studies are consistent with transudative effusion. (6) Pneumonia Finished course of Rocephin and azithromycin as inpatient. Cultures from admission negative. Pending pleural fluid cultures. Flu testing was negative. (7) Cirrhosis Likely due to chronic passive congestion caused by underlying severe pulmonary hypertension. Hepatitis panel negative. Coags and platelets within normal limits. Liver ultrasound suboptimal due to body habitus. Continue treating for underlying pulmonary hypertension. Physical Exam Vital Signs: Temp Pulse Resp BP Pulse Ox 98.4 F 98 14 138/74 H 91 L 07/28/18 17:55 07/28/18 17:55 07/28/18 17:55 07/28/18 17:55 07/28/18 17:55 Pulse Oximeter Nocturnal Start: 07/27/18 16:40 Freq: RTQ4 Status: Complete Protocol: Document 07/28/18 08:53 [facility] (Rec: 07/28/18 10:35 [facility] [place] [id number]) Nocturnal Pulse Oximetry Equipment Usage Equipment Standby Continuous SpO2 Machine # na Intake & Output 07/27/18 07/28/18 07/29/18 06:59 06:59 06:59 Intake Total 290 750 710 Output Total 900 3640 1300 Balance -610 -2890 -590 Weight 138 kg 135.3 kg General appearance: PRESENT: no acute distress, well-developed, well-nourished Head exam: PRESENT: atraumatic, normocephalic Respiratory exam: PRESENT: clear to auscultation ba. ABSENT: rales, rhonchi, wheezes Cardiovascular exam: PRESENT: RRR. ABSENT: diastolic murmur, rubs, systolic murmur GI/Abdominal exam: PRESENT: normal bowel sounds, soft. ABSENT: distended, guarding, mass, organolmegaly, rebound, tenderness Extremities exam: PRESENT: full ROM, +1 edema. ABSENT: calf tenderness, clubbing, pedal edema Neurological exam: PRESENT: alert, awake, oriented to person, oriented to place, oriented to time, oriented to situation, CN II-XII grossly intact. ABSENT: motor sensory deficit Skin exam: PRESENT: dry, intact, warm. ABSENT: cyanosis, rash Results Laboratory Results: 07/28/18 04:43 07/28/18 04:43 07/28/18 07/28/18 07/28/18 04:43 04:43 07:05 WBC 7.7 RBC 5.88 H Hgb 15.8 H Hct 50.0 H MCV 85 MCH 26.9 L MCHC 31.7 L RDW 19.3 H Plt Count 155 Seg Neutrophils % 69.3 Lymphocytes % 20.2 Monocytes % 10.3 Eosinophils % 0.0 Basophils % 0.2 Absolute Neutrophils 5.3 Absolute Lymphocytes 1.5 Absolute Monocytes 0.8 Absolute Eosinophils 0.0 Absolute Basophils 0.0 Carbonic Acid Cancelled HCO3/H2CO3 Ratio Cancelled ABG pH Cancelled ABG pCO2 Cancelled ABG pO2 Cancelled ABG HCO3 Cancelled ABG O2 Saturation Cancelled ABG Base Excess Cancelled FiO2 Cancelled Sodium 139.9 Potassium 4.0 Chloride 98 Carbon Dioxide 37 H Anion Gap 5 BUN 17 Creatinine 0.54 Est GFR ( Amer) > 60 Est GFR (Non-Af Amer) > 60 Glucose 250 H Calcium 9.0 Magnesium 1.8 Total Bilirubin 0.9 AST 13 L ALT 20 Alkaline Phosphatase 46 Total Protein 5.4 L Albumin 3.2 L 07/20/18 15:40 NT-Pro-B Natriuret Pep 945 H Impressions: Thoracentesis Ultrasound 07/22/18 17:32 IMPRESSION: SUCCESSFUL THORACENTESIS USING ULTRASOUND GUIDANCE. Chest/Abdomen CTA 07/23/18 16:02 IMPRESSION: 1. There is no evidence of pulmonary emboli. 2. Moderate right pleural effusion smaller left pleural effusion with atelectatic changes in both lower lobes. 3. Cardiomegaly. Chest X-Ray 07/24/18 12:55 IMPRESSION: Persistent collapse and consolidation right lower lobe with trace right pleural effusion Abdomen Ultrasound 07/28/18 09:02 IMPRESSION: 1. The examination is very limited due to patient body habitus. The pancreas, abdominal aorta are not visualized. 2. Very limited examination of the liver. Diffuse increased echogenicity of the liver, may be related to the patient's underlying liver disease. Hepatomegaly. 3. Gallbladder sludge. 4. The common bile duct is dilated measuring 8.1 mm in diameter. Correlation suggested. Qualifiers - * PATIENT BEING DISCHARGED WITH ANY OF THE FOLLOWING DIAGNOSIS: No
[2018-07-28 18:52] VITALS: BP 148/92
--- NOTE | 2018-07-29 16:26 | PDOC PROGRESS REPORT ---
Subjective Progress Note for:: 07/23/18 Subjective:: awake and confused Reason For Visit: ACUTE HYPOXIC RESPIRATORY FAILURE Physical Exam Vital Signs: Temp Pulse Resp BP Pulse Ox 98.2 F 97 16 136/75 H 93 07/23/18 08:00 07/23/18 08:00 07/23/18 08:00 07/23/18 08:00 07/23/18 08:00 Intake & Output 07/22/18 07/23/18 07/24/18 06:59 06:59 06:59 Intake Total 1409 225 Output Total 450 1325 200 Balance 959 -1100 -200 Weight 140.1 kg 140.8 kg General appearance: PRESENT: no acute distress, disheveled. ABSENT: cooperative Head exam: PRESENT: atraumatic, normocephalic Eye exam: PRESENT: conjunctiva pale, EOMI. ABSENT: nystagmus, scleral icterus Mouth exam: PRESENT: dry mucosa, neck supple, tongue midline Neck exam: ABSENT: carotid bruit, JVD, lymphadenopathy, thyromegaly, tracheal deviation, tracheostomy Respiratory exam: PRESENT: decreased breath sounds - Pleural effusion radiographically, prolonged expiratory phas, rales, rhonchi, unlabored, wheezes. ABSENT: retraction Cardiovascular exam: PRESENT: RRR, +S1, +S2 Pulses: PRESENT: normal radial pulses GI/Abdominal exam: PRESENT: soft. ABSENT: tenderness Gentrourinary exam: PRESENT: indwelling catheter Extremities exam: PRESENT: calf tenderness, clubbing, joint swelling, pedal edema Neurological exam: PRESENT: altered, awake Psychiatric exam: PRESENT: flat affect Skin exam: PRESENT: dry, warm Results Laboratory Results: 07/23/18 05:47 07/22/18 03:53 07/22/18 07/22/18 07/22/18 12:25 12:25 14:40 WBC RBC Hgb Hct MCV MCH MCHC RDW Plt Count Seg Neutrophils % Lymphocytes % Monocytes % Eosinophils % Basophils % Absolute Neutrophils Absolute Lymphocytes Absolute Monocytes Absolute Eosinophils Absolute Basophils Carbonic Acid 2.66 H HCO3/H2CO3 Ratio 14:1 ABG pH 7.25 L ABG pCO2 88.5 H* ABG pO2 80.2 ABG HCO3 38.1 H ABG O2 Saturation 93.3 L ABG Base Excess 6.8 FiO2 70% Magnesium Total Protein Cancelled Fluid Type PLEURAL Fluid Source LUNG Fluid Color YELLOW Fluid Appearance SLIGHTLY HAZY Fluid Viscosity LIQUID Fluid WBC 468 Fluid RBC 473 07/23/18 07/23/18 07/23/18 03:50 05:47 05:47 WBC 7.0 RBC 5.61 H Hgb 15.4 Hct 48.2 H MCV 86 MCH 27.5 MCHC 32.0 RDW 19.2 H Plt Count 183 Seg Neutrophils % 68.8 Lymphocytes % 20.6 Monocytes % 10.5 Eosinophils % 0.0 Basophils % 0.1 Absolute Neutrophils 4.8 Absolute Lymphocytes 1.5 Absolute Monocytes 0.7 Absolute Eosinophils 0.0 Absolute Basophils 0.0 Carbonic Acid 2.77 H HCO3/H2CO3 Ratio 15:1 ABG pH 7.29 L ABG pCO2 92.1 H* ABG pO2 83.0 ABG HCO3 42.8 H ABG O2 Saturation 94.2 ABG Base Excess 11.2 FiO2 70% Magnesium 1.6 Total Protein Fluid Type Fluid Source Fluid Color Fluid Appearance Fluid Viscosity Fluid WBC Fluid RBC 07/20/18 15:40 NT-Pro-B Natriuret Pep 945 H Impressions: Thoracentesis Ultrasound 07/22/18 17:32 IMPRESSION: SUCCESSFUL THORACENTESIS USING ULTRASOUND GUIDANCE. Chest X-Ray 07/23/18 06:00 IMPRESSION: No significant change. Assessment & Plan - Diagnosis (1) Acute and chronic respiratory failure with hypercapnia Is this a current diagnosis for this admission?: Yes Plan: The above patient has failed BiPAP with a patent airway. This patient would benefit from noninvasive mechanical ventilation via the trilogy AVAPS/AE and faster responding AVAPS rates. The trilogy is able to provide a target tidal volume and also adjusting the EPAP pressures to maintain a patent airway as well as an oral backup rate this machine will help improve PaCO2 levels. The severity of the patient's condition will lead to future hospitalizations and readmissions as well as life-threatening situations without the use of this device day and night. Trilogy home vent needed for hypercapnic respiratory failure. [facility] or [facility] to follow for trilogy set up. (2) Acute respiratory failure with hypoxia Is this a current diagnosis for this admission?: Yes Plan: Down FiO2 as tolerated (3) Hypertension Is this a current diagnosis for this admission?: Yes Plan: Stable at this time (4) Pleural effusion Is this a current diagnosis for this admission?: Yes Plan: resolved (5) Pneumonia Qualifiers: Pneumonia type: due to unspecified organism Laterality: right Lung location: lower lobe of lung Qualified Code(s): J18.1 - Lobar pneumonia, unspe cified organism Is this a current diagnosis for this admission?: Yes Plan: Improved - Time Total Critical Time (Minutes): 45
--- NOTE | 2018-07-29 16:28 | PDOC PROGRESS REPORT ---
Subjective Progress Note for:: 07/24/18 Subjective:: awake and confused Reason For Visit: ACUTE HYPOXIC RESPIRATORY FAILURE Physical Exam Vital Signs: Temp Pulse Resp BP Pulse Ox 99.1 F 96 20 131/76 H 92 07/24/18 12:00 07/24/18 12:00 07/24/18 12:00 07/24/18 12:00 07/24/18 12:00 Intake & Output 07/23/18 07/24/18 07/25/18 06:59 06:59 06:59 Intake Total 225 1530 Output Total 1325 1825 450 Balance -1100 -295 -450 Weight 140.8 kg 141.2 kg General appearance: PRESENT: no acute distress, disheveled, morbidly obese Head exam: PRESENT: atraumatic, normocephalic Eye exam: PRESENT: conjunctiva pale, EOMI. ABSENT: nystagmus Mouth exam: PRESENT: dry mucosa, neck supple, tongue midline Neck exam: ABSENT: carotid bruit, JVD, lymphadenopathy, thyromegaly, tracheal deviation, tracheostomy Respiratory exam: PRESENT: decreased breath sounds, prolonged expiratory phas, rales, rhonchi, unlabored. ABSENT: retraction, stridor Cardiovascular exam: PRESENT: RRR, +S1, +S2 Pulses: PRESENT: normal radial pulses GI/Abdominal exam: PRESENT: soft Gentrourinary exam: PRESENT: indwelling catheter Extremities exam: ABSENT: calf tenderness, clubbing, joint swelling, pedal edema Musculoskeletal exam: ABSENT: deformity, dislocation Neurological exam: PRESENT: awake. ABSENT: altered Skin exam: PRESENT: dry, warm Results Laboratory Results: 07/24/18 03:43 07/24/18 03:43 07/24/18 07/24/18 07/24/18 03:43 03:43 05:21 WBC 7.5 RBC 5.77 H Hgb 15.5 Hct 49.4 H MCV 86 MCH 26.8 L MCHC 31.4 L RDW 19.3 H Plt Count 167 Seg Neutrophils % 67.6 Lymphocytes % 20.8 Monocytes % 11.5 Eosinophils % 0.0 Basophils % 0.1 Absolute Neutrophils 5.1 Absolute Lymphocytes 1.6 Absolute Monocytes 0.9 Absolute Eosinophils 0.0 Absolute Basophils 0.0 Carbonic Acid 2.13 H HCO3/H2CO3 Ratio 19:1 ABG pH 7.39 ABG pCO2 70.6 H* ABG pO2 76.5 L ABG HCO3 41.8 H ABG O2 Saturation 94.7 ABG Base Excess 12.9 FiO2 50% Sodium 138.5 Potassium 4.6 Chloride 95 L Carbon Dioxide 40 H* Anion Gap 4 L BUN 17 Creatinine 0.55 Est GFR ( Amer) > 60 Est GFR (Non-Af Amer) > 60 Glucose 197 H Calcium 8.9 Magnesium 1.7 07/20/18 15:40 NT-Pro-B Natriuret Pep 945 H Impressions: Thoracentesis Ultrasound 07/22/18 17:32 IMPRESSION: SUCCESSFUL THORACENTESIS USING ULTRASOUND GUIDANCE. Chest/Abdomen CTA 07/23/18 16:02 IMPRESSION: 1. There is no evidence of pulmonary emboli. 2. Moderate right pleural effusion smaller left pleural effusion with ate lectatic changes in both lower lobes. 3. Cardiomegaly. Chest X-Ray 07/24/18 06:00 IMPRESSION: Worsening includes moderate opacification of the right lower 50% hemithorax. Assessment & Plan - Diagnosis (1) Acute and chronic respiratory failure with hypercapnia Is this a current diagnosis for this admission?: Yes Plan: The above patient has failed BiPAP with a patent airway. This patient would benefit from noninvasive mechanical ventilation via the trilogy AVAPS/AE and faster responding AVAPS rates. The trilogy is able to provide a target tidal vo lume and also adjusting the EPAP pressures to maintain a patent airway as well as an oral backup rate this machine will help improve PaCO2 levels. The severity of the patient's condition will lead to future hospitalizations and readmissions as well as life-threatening situations without the use of this device day and night. Trilogy home vent needed for hypercapnic respiratory failure. [facility] (2) Acute respiratory failure with hypoxia Is this a current diagnosis for this admission?: Yes Plan: Down FiO2 as tolerated (3) Hypertension Is this a current diagnosis for this admission?: Yes Plan: Stable at this time (4) Pleural effusion Is this a current diagnosis for this admission?: Yes Plan: resolved (5) Pneumonia Qualifiers: Pneumonia type: due to unspecified organism Laterality: right Lung location: lower lobe of lung Qualified Code(s): J18.1 - Lobar pneumonia, unspecified organism Is this a current diagnosis for this admission?: Yes Plan: Improved
== END 2018-07-28 19:24 | disposition home or self-care (01) | DRG 189 ==
LOC: ER 15:12 → UNDOADMIN 18:10 → EH 18:10 → 3N 21:34 → ICU 07-21 16:08 → 3W 07-24 20:21
PROVIDERS: ADMIT Internal Medicine; ATTEND Internal Medicine
PROC: 5A09357 Assistance with Respiratory Ventilation, Less than 24 Consecutive Hours, Continuous Positive Airway Pressure (ICD-10-PCS; principal; 2018-07-20)
PROC: 0W993ZX Drainage of Right Pleural Cavity, Percutaneous Approach, Diagnostic (ICD-10-PCS; 2018-07-22)
DX: J96.01 Acute respiratory failure with hypoxia (principal); J18.1 Lobar pneumonia, unspecified organism; J90 Pleural effusion, not elsewhere classified; J44.0 Chronic obstructive pulmonary disease with (acute) lower respiratory infection; Z68.43 Body mass index [BMI] 50.0-59.9, adult; J96.22 Acute and chronic respiratory failure with hypercapnia; I27.81 Cor pulmonale (chronic); K74.60 Unspecified cirrhosis of liver; I10 Essential (primary) hypertension; E78.5 Hyperlipidemia, unspecified; E11.9 Type 2 diabetes mellitus without complications; G47.33 Obstructive sleep apnea (adult) (pediatric); E66.01 Morbid (severe) obesity due to excess calories; F17.200 Nicotine dependence, unspecified, uncomplicated; Z88.0 Allergy status to penicillin; Z88.8 Allergy status to other drugs, medicaments and biological substances; Z91.040 Latex allergy status
CPT/HCPCS: 32555; 36415; 36600; 71045; 71046; 71250; 71275; 76705; 80048; 80053; 80074; 82803; 82945; 82962; 83036; 83615; 83735; 83880; 83986; 84157; 84311; 85025; 85610; 85730; 87015; 87040; 87070; 87075; 87116; 87205; 87206; 87252; 87804; 88305; 88341; 88342; 89050; 93005; 93010; 93306; 93976; 94640; 94660; 94762; 96365; 96375; 99285; J0456; J0696; J1652; J1815; J1940; J2920; J3490; J7040; J7060; J7620

== ENCOUNTER → 2018-11-08 | Outpatient (CLI) | payer MEDICARE, MEDICAID ==
[2018-11-08 10:20] LABS: ANION GAP 11 (5-19); BLOOD UREA NITROGEN 18 mg/dL (7-20); CALCIUM 9.4 mg/dL (8.4-10.2); CARBON DIOXIDE 30 mmol/L (22-30); CHLORIDE 100 mmol/L (98-107); CHOLESTEROL 152.37 mg/dL (0-200); GLUCOSE 168 mg/dL (75-110); POTASSIUM 4.7 mmol/L (3.6-5.0); SODIUM 141.1 mmol/L (137-145); TRIGLYCERIDES 120 mg/dL (<150)
[2018-11-08 10:32] LABS: DIRECT LDL 81 mg/dL (<100)
[2018-11-09 12:37] LABS: CREATININE URINE 38.1 mg/dL (Not Estab.)
[2018-11-09 13:29] LABS: MICROALBUMIN URINE <3.0 ug/mL (Not Estab.)
== END ==
LOC: OD 08:31
PROVIDERS: ATTEND Family Medicine
DX: E11.65 Type 2 diabetes mellitus with hyperglycemia (principal); E78.2 Mixed hyperlipidemia; I10 Essential (primary) hypertension; J45.20 Mild intermittent asthma, uncomplicated; Z79.899 Other long term (current) drug therapy
CPT/HCPCS: 36415; 80048; 80061; 82043; 82570; 83036; 84443

== ENCOUNTER → 2018-12-06 | Outpatient (CLI) | payer MEDICARE, MEDICAID ==
[2018-12-06 10:31] LABS: HEMATOCRIT 36.8 % (36.0-47.0); HEMOGLOBIN 12.3 g/dL (12.0-15.5); MEAN CORPUSCULAR HGB CONC 33.6 g/dL (32.0-36.0); MEAN CORPUSCULAR VOLUME 95 fl (80-97); PLATELET COUNT 320 10^3/uL (150-450); RED BLOOD COUNT 3.86 10^6/uL (3.72-5.28); RED CELL DISTRIBUTION WIDTH 13.4 % (11.5-14.0); WHITE BLOOD COUNT 8.9 10^3/uL (4.0-10.5)
== END ==
LOC: OD 09:58
PROVIDERS: ATTEND Family Medicine
DX: L65.9 Nonscarring hair loss, unspecified (principal); R53.82 Chronic fatigue, unspecified
CPT/HCPCS: 36415; 82306; 82607; 85027

== ENCOUNTER → 2018-12-29 | Outpatient (CLI) | payer MEDICARE, MEDICAID ==
[2018-12-29 11:52] LABS: ABSOLUTE EOSINOPHILS # (AUTO) 0.1 10^3/uL (0.0-0.6); ABSOLUTE LYMPHOCYTES (AUTO) 3.8 10^3/uL (0.5-4.7); ABSOLUTE MONOCYTES (AUTO) 0.7 10^3/uL (0.1-1.4); ABSOLUTE NEUT (AUTO) 5.9 10^3/uL (1.7-8.2); BASOPHILS % (AUTO) 0.3 % (0-2); HEMATOCRIT 38.9 % (36.0-47.0); HEMOGLOBIN 13.3 g/dL (12.0-15.5); LYMPHOCYTES % (AUTO) 36.1 % (13-45); MEAN CORPUSCULAR HEMOGLOBIN 32.1 pg (27.0-33.4); MEAN CORPUSCULAR HGB CONC 34.2 g/dL (32.0-36.0); MEAN CORPUSCULAR VOLUME 94 fl (80-97); MONOCYTES % (AUTO) 6.2 % (3-13); PLATELET COUNT 322 10^3/uL (150-450); RED BLOOD COUNT 4.14 10^6/uL (3.72-5.28); RED CELL DISTRIBUTION WIDTH 12.4 % (11.5-14.0); SEGMENTED NEUTROPHILS % (AUTO) 56.4 % (42-78); TOTAL CELLS COUNTED % (AUTO) 100 %; WHITE BLOOD COUNT 10.5 10^3/uL (4.0-10.5)
[2018-12-29 12:07] LABS: ALANINE AMINOTRANSFERASE 31 U/L (9-52); ALBUMIN 4.2 g/dL (3.5-5.0); ALKALINE PHOSPHATASE 86 U/L (38-126); ANION GAP 9 (5-19); ASPARTATE AMINO TRANSFERASE 20 U/L (14-36); BILIRUBIN,DIRECT 0.2 mg/dL (0.0-0.4); BILIRUBIN,TOTAL 0.3 mg/dL (0.2-1.3); BLOOD UREA NITROGEN 16 mg/dL (7-20); CALCIUM 9.6 mg/dL (8.4-10.2); CARBON DIOXIDE 32 mmol/L (22-30); CHLORIDE 98 mmol/L (98-107); GLUCOSE 185 mg/dL (75-110); POTASSIUM 4.4 mmol/L (3.6-5.0); TOTAL PROTEIN 6.8 g/dL (6.3-8.2)
== END ==
LOC: OD 11:08
PROVIDERS: ATTEND Registered Nurse
DX: A31.0 Pulmonary mycobacterial infection (principal)
CPT/HCPCS: 36415; 80053; 85025

== ENCOUNTER → 2019-01-17 | Outpatient (CLI) | payer MEDICARE, MEDICAID ==
--- NOTE | 2019-01-17 13:43 | RADIOLOGY REPORT (SQ) ---
EXAM DESCRIPTION: CT CHEST WITHOUT COMPLETED DATE/TIME: 01/17/2019 9:48 am REASON FOR STUDY: PULMONARY MYCOBACTERIAL INFECTION A31.0 PULMONARY MYCOBACTERIAL INFECTION COMPARISON: None. TECHNIQUE: CT scan performed of the chest without intravenous contrast. Images reviewed with lung, soft tissue and bone windows. Reconstructed coronal and sagittal MPR images reviewed. All images st ored on PACS. All CT scanners at this facility use dose modulation, iterative reconstruction, and/or weight based d osing when appropriate to reduce radiation dose to as low as reasonably achievable (ALARA). [facility]: Dose Right [facility]: CareDose [facility]: Dose Right [facility]: Teradose 4D [facility]: Smart Worklight RADIATION DOSE: CT Rad equipment meets quality standard of care and radiation dose reduction techniq ues were employed. CTDIvol: 19.5 mGy. DLP: 730 mGy-cm. mGy. LIMITATIONS: No technical limitations. FINDINGS: LUNGS AND PLEURA: No masses, infiltrates, or effusion. HILAR AND MEDIASTINAL STRUCTURES: No identified masses or abnormal nodes. No obvious aneurysm. HEART AND VASCULAR STRUCTURES: No aneurysm. No pericardial effusion. UPPER ABDOMEN: Small right adrenal adenoma. THYROID AND OTHER SOFT TISSUES: No masses. No adenopathy. BONES: No significant finding. HARDWARE: None in the chest. OTHER: No other significant findings. IMPRESSION: There is no evidence of active pulmonary tuberculosis. There is a small right adrenal a denoma. TECHNICAL DOCUMENTATION: JOB ID: [id number] Quality ID # [id number]: Final reports with documentation of one or more dose reduction techniques (e.g., Au tomated exposure control, adjustment of the mA and/or kV according to patient size, use of iterative reconstruction technique) 2010 [employer]- All Rights Reserved Reading location - IP/workstation name: [email or web address]
== END ==
LOC: RAD 09:46
PROVIDERS: ATTEND Internal Medicine Pulmonary Disease
DX: A31.0 Pulmonary mycobacterial infection (principal); D35.01 Benign neoplasm of right adrenal gland
CPT/HCPCS: 71250

== ENCOUNTER 2019-02-17 09:22 | Day surgery (SDC) | payer MEDICARE, MEDICAID ==
[~2019-02-17 09:22] MED LIST: CHONDR SU A NA/HYALUR INTRAOC KIT (SURGICARE) ONE; EPINEPHRINE INJ/PF 1 MG/1 ML AMPULE ONE; KETOROLAC TROMETHAMINE 0.45% 4 DROP/0.4 ML DROPERETTE OD PRN; LIDOCAINE 1%/PHENYLEPHRINE 1.5% 1 ML VIAL ONE; TRYPAN BLUE 0.06 % OPH SOLN 0.5 ML DISP.SYRIN ONE
[2019-02-17] MEDS: TETRACAINE HCL 0.5% OPH SOLN 4 ML OD PRN ×3 (10:18→10:55)
[2019-02-17] MEDS: TROPICAMIDE 1% OPH SOLN 3 ML OD PRN ×3 (10:18→10:36)
[2019-02-17] MEDS: BESIFLOXACIN HCL 0.6% OPH SUSP 5 ML BOTTLE OD PRN ×4 (10:19→11:23)
[2019-02-17] MEDS: CYCLOPENTOLATE 0.2%/PHENYLEPHRINE 1% OPH SOLN 2 ML OD PRN ×3 (10:19→10:36)
[2019-02-17] MEDS ORDERED: MIDAZOLAM 2 MG/2 ML INJ ONE (10:28)
[2019-02-17] MEDS ORDERED: FENTANYL CITRATE INJ/PF 100 MCG/2 ML AMPUL ONE (10:28)
[2019-02-17] MEDS ORDERED: PROPOFOL INJ 200 MG/20 ML VIAL IV ONE (10:29)
[2019-02-17] MEDS ORDERED: BUPIVACAINE HCL 0.75% INJ/PF (7.5 MG/1 ML) 10 ML SDV ONE (10:38)
[2019-02-17] MEDS ORDERED: HYALURONIDASE INJ 150 UNIT/1 ML VIAL ONE (10:38)
[2019-02-17] MEDS ORDERED: LIDOCAINE 2% INJ-PF (20 MG/ML) 10 ML AMPUL ONE (10:38)
[2019-02-17] MEDS: DORZOLAMIDE HCL 2%/TIMOLOL MALEAT 0.5% OPH SOLN 10 ML OD PRN ×2 (11:15→11:23)
[2019-02-17] MEDS ORDERED: TOBRAMYCIN SULFATE/DEXAMETH OPH OINTMENT 3.5 GM ONE (11:18)
--- NOTE | 2019-02-18 07:47 | Operative Report ---
Operative Report-[facility] Operative Report: DATE OF SURGERY: 02/17/2019 PREOPERATIVE DIAGNOSIS: Other age related Cataract, right eye POSTOPERATIVE DIAGNOSIS: other age related Cataract, right eye OPERATION: complex Cataract extraction with insertion of an IOL of the right eye and use of trypan blue dye Intraocular Lens Model: [22.0 sn60wf] pt was unable to see to drive. SURGEON: Bam Lutz MD ANESTHESIA: Topical and retrobulbar block of 2% lidocaine, 0.75% marcaine, and 50 units vitrase. PROCEDURE: After obtaining appropriate consent, the patient's right eye was prepped and draped in a sterile fashion as well as the surgeon in the sterile manner and cataract surgery was started. First a paracentesis blade was used to make a side-port incision. Viscoelastic was used to inflate the anterior chamber. Next a 2.4 mm incision was made with a 2.4 mm blade, clear corneal temporarily. A continuous capsulorrhexis was made using a cystotome and Utrata forceps. Following this hydrodissection was carried out to make the ira fully loose and mobile and it was rotated. Following this, a divide and conquer technique was used to phacoemulsify the ira. The remaining cortex was removed with an irrigation/aspiration. Provisc was instilled into the capsular bag to inflate the bag. The intraocular lens was placed. The remaining viscoelastic ma terial was removed with irrigation/aspiration. Following this, the incision was found to be watertight. Besivance and Cosopt was instilled into the eye and tobradex ointment, then a pressure patch and a protective shield was placed over the eye. The patient was reurned to the postoperative recovery in a stable condition. prior to making the capsulorhexis, trypan blue dye was used due to this cataract being mature white with no red reflex. this made it easier to make the rhexis.
== END 2019-02-17 12:11 | disposition home or self-care (01) ==
LOC: SC 09:22
PROVIDERS: ATTEND Internal Medicine
DX: H25.89 Other age-related cataract (principal); E11.9 Type 2 diabetes mellitus without complications; K21.9 Gastro-esophageal reflux disease without esophagitis; J44.9 Chronic obstructive pulmonary disease, unspecified; I11.0 Hypertensive heart disease with heart failure; I50.9 Heart failure, unspecified; E66.9 Obesity, unspecified; Z79.51 Long term (current) use of inhaled steroids; Z99.81 Dependence on supplemental oxygen; Z79.84 Long term (current) use of oral hypoglycemic drugs; Z87.891 Personal history of nicotine dependence
CPT/HCPCS: 66984; 82962; V2632; J2250; J3490 ×6; A9270; J0171; J3010; J2704; J3470; J2370; 142

== ENCOUNTER 2019-03-10 08:44 | Day surgery (SDC) | payer MEDICARE, MEDICAID ==
[~2019-03-10 08:44] MED LIST changes: -KETOROLAC TROMETHAMINE 0.45% 4 DROP/0.4 ML DROPERETTE OD PRN; -TRYPAN BLUE 0.06 % OPH SOLN 0.5 ML DISP.SYRIN ONE
[2019-03-10] MEDS: TROPICAMIDE 1% OPH SOLN 15 ML OS PRN ×3 (09:34→09:56)
[2019-03-10] MEDS: TETRACAINE HCL 0.5% OPH SOLN 4 ML OS PRN ×2 (09:34→10:14)
[2019-03-10] MEDS: CYCLOPENTOLATE 0.2%/PHENYLEPHRINE 1% OPH SOLN 2 ML OS PRN ×3 (09:35→09:56)
[2019-03-10] MEDS: BESIFLOXACIN HCL 0.6% OPH SUSP 5 ML BOTTLE OS PRN ×4 (09:35→10:33)
[2019-03-10] MEDS: KETOROLAC TROMETHAMINE 0.45% 4 DROP/0.4 ML DROPERETTE OS PRN ×2 (09:36→09:57)
[2019-03-10] MEDS ORDERED: MIDAZOLAM 2 MG/2 ML INJ ONE (10:10)
[2019-03-10] MEDS ORDERED: FENTANYL CITRATE INJ/PF 100 MCG/2 ML AMPUL ONE (10:10)
[2019-03-10] MEDS: DORZOLAMIDE HCL 2%/TIMOLOL MALEAT 0.5% OPH SOLN 10 ML OS PRN ×2 (10:33)
--- NOTE | 2019-03-11 13:02 | Operative Report ---
Operative Report-[facility] Operative Report: DATE OF SURGERY: [03/10/2019] PREOPERATIVE DIAGNOSIS: Cataracts, left eye POSTOPERATIVE DIAGNOSIS: Cataract, left eye OPERATION: Cataract extraction with insertion of an IOL of the left eye. Intraocular Lens Model: [23.5 sn60wf] reason for surgery was diffficulty driving at night SURGEON: Bam Lutz MD ANESTHESIA: Topical PROCEDURE: After obtaining appropriate consent, the patient's left eye was prepped and draped in a sterile fashion as well as the surgeon in the sterile manner and cataract surgery was started. First a paracentesis blade was used to make a side-port incision. Viscoelastic was used to inflate the anterior chamber. Next a 2.4 mm incision was made with a 2.4 mm blade, clear corneal temporarily. A continuous capsulorrhexis was made using a cystotome and Utrata forceps. Following this hydrodissection was carried out to make commands fully loose and mobile and it was rotated 90 degrees. Following this, a divide and conquer technique was used to phacoemulsify the lens. The remaining cortex was removed with an irrigation/aspiration. Provisc was instilled into the capsular b ag to inflate the bag.The intracular lens was placed. The remaining viscoelastic material was removed with irrigation/aspiration. Following this, the incision was found to be watertight. Besivance and Cosopt was instilled into the eye and a protective shield was placed over the eye. The patient was turned to the postoperative recovery in a stable condition.
== END 2019-03-10 11:20 | disposition home or self-care (01) ==
LOC: SC 08:44
PROVIDERS: ATTEND Internal Medicine
DX: H25.12 Age-related nuclear cataract, left eye (principal); Z96.1 Presence of intraocular lens; H43.812 Vitreous degeneration, left eye; I11.9 Hypertensive heart disease without heart failure; E11.9 Type 2 diabetes mellitus without complications; E66.9 Obesity, unspecified
CPT/HCPCS: 66984; 82962; 00142; V2632; J2250; J3490 ×2; A9270; J0171; J3010; J2370; 142

== ENCOUNTER → 2019-04-05 | Outpatient (CLI) | payer MEDICARE, MEDICAID ==
--- NOTE | 2019-04-05 14:38 | RADIOLOGY REPORT (SQ) ---
EXAM DESCRIPTION: CHEST PA/LATERAL COMPLETED DATE/TIME: 04/05/2019 2:22 pm REASON FOR STUDY: PULMONARY MYCOBACTERIAL INFECTION COMPARISON: CT of the chest without contrast from 01/17/2019. EXAM PARAMETERS: NUMBER OF VIEWS: two views TECHNIQUE: Digital Frontal and Lateral radiographic views of the chest acquired. RADIATION DOSE: NA LIMITATIONS: none FINDINGS: LUNGS AND PLEURA: No consolidation, pleural effusion or pneumothorax. MEDIASTINUM AND HILAR STRUCTURES: No mediastinal hilar contour abnormality. HEART AND VASCULAR STRUCTURES: The cardiac silhouette and pulmonary vasculature are within normal jackson its. BONES: No acute findings. HARDWARE: None in the chest. OTHER: No other finding. IMPRESSION: No acute cardiopulmonary process. TECHNICAL DOCUMENTATION: JOB ID: [id number] [employer]- All Rights Reserved Reading location - IP/workstation name: [email or web address]
[2019-04-05 15:29] LABS: ABSOLUTE EOSINOPHILS # (AUTO) 0.3 10^3/uL (0.0-0.6); ABSOLUTE LYMPHOCYTES (AUTO) 4.1 10^3/uL (0.5-4.7); ABSOLUTE MONOCYTES (AUTO) 0.7 10^3/uL (0.1-1.4); ABSOLUTE NEUT (AUTO) 5.6 10^3/uL (1.7-8.2); BASOPHILS % (AUTO) 0.4 % (0-2); EOSINOPHILS % (AUTO) 2.4 % (0-6); HEMATOCRIT 37.7 % (36.0-47.0); HEMOGLOBIN 13.1 g/dL (12.0-15.5); LYMPHOCYTES % (AUTO) 38.4 % (13-45); MEAN CORPUSCULAR HEMOGLOBIN 32.6 pg (27.0-33.4); MEAN CORPUSCULAR HGB CONC 34.6 g/dL (32.0-36.0); MEAN CORPUSCULAR VOLUME 94 fl (80-97); PLATELET COUNT 330 10^3/uL (150-450); RED BLOOD COUNT 4.01 10^6/uL (3.72-5.28); RED CELL DISTRIBUTION WIDTH 13.4 % (11.5-14.0); SEGMENTED NEUTROPHILS % (AUTO) 51.8 % (42-78); TOTAL CELLS COUNTED % (AUTO) 100 %; WHITE BLOOD COUNT 10.8 10^3/uL (4.0-10.5)
[2019-04-05 15:34] LABS: ALBUMIN 4.2 g/dL (3.5-5.0); ALKALINE PHOSPHATASE 66 U/L (38-126); ANION GAP 12 (5-19); ASPARTATE AMINO TRANSFERASE 18 U/L (14-36); BILIRUBIN,DIRECT 0.1 mg/dL (0.0-0.4); BILIRUBIN,TOTAL 0.2 mg/dL (0.2-1.3); BLOOD UREA NITROGEN 14 mg/dL (7-20); CALCIUM 9.6 mg/dL (8.4-10.2); CARBON DIOXIDE 29 mmol/L (22-30); CHLORIDE 101 mmol/L (98-107); GLUCOSE 127 mg/dL (75-110); POTASSIUM 4.6 mmol/L (3.6-5.0); TOTAL PROTEIN 6.9 g/dL (6.3-8.2)
== END ==
LOC: OD 13:53
PROVIDERS: ATTEND Registered Nurse
DX: A31.0 Pulmonary mycobacterial infection (principal)
CPT/HCPCS: 36415; 71046; 80053; 85025; 87015; 87116; 87206

== ENCOUNTER → 2019-05-19 | Outpatient (CLI) | payer MEDICARE, MEDICAID | LOC: LAB 16:06 | PROVIDERS: ATTEND Family Medicine | DX: E11.65 Type 2 diabetes mellitus with hyperglycemia (principal); Z79.899 Other long term (current) drug therapy | CPT/HCPCS: 36415; 83036 ==

== ENCOUNTER → 2019-07-22 | Outpatient (CLI) | payer MEDICARE, MEDICAID ==
[2019-07-22 12:04] LABS: ANION GAP 12 (5-19); BLOOD UREA NITROGEN 18 mg/dL (7-20); CALCIUM 9.9 mg/dL (8.4-10.2); CARBON DIOXIDE 31 mmol/L (22-30); CHLORIDE 98 mmol/L (98-107); GLUCOSE 154 mg/dL (75-110); POTASSIUM 4.4 mmol/L (3.6-5.0)
== END ==
LOC: OD 10:29
PROVIDERS: ATTEND Specialist
DX: I10 Essential (primary) hypertension (principal); I27.20 Pulmonary hypertension, unspecified; J44.9 Chronic obstructive pulmonary disease, unspecified; Z79.899 Other long term (current) drug therapy; I35.0 Nonrheumatic aortic (valve) stenosis; A31.0 Pulmonary mycobacterial infection; R60.0 Localized edema; E78.5 Hyperlipidemia, unspecified
CPT/HCPCS: 36415; 80048; 83036; 83735

== ENCOUNTER → 2019-11-14 | Outpatient (CLI) | payer MEDICARE, MEDICAID ==
[2019-11-14 10:20] LABS: ANION GAP 8 (5-19); BLOOD UREA NITROGEN 14 mg/dL (7-20); CALCIUM 9.5 mg/dL (8.4-10.2); CARBON DIOXIDE 29 mmol/L (22-30); CHLORIDE 101 mmol/L (98-107); CHOLESTEROL 159.82 mg/dL (0-200); GLUCOSE 183 mg/dL (75-110); POTASSIUM 4.4 mmol/L (3.6-5.0); TRIGLYCERIDES 106 mg/dL (<150)
[2019-11-14 10:31] LABS: DIRECT LDL 95 mg/dL (<100)
[2019-11-14 10:36] LABS: BLOOD UREA NITROGEN 14 mg/dL (7-20); CALCIUM 9.5 mg/dL (8.4-10.2); GLUCOSE 183 mg/dL (75-110)
[2019-11-14 10:37] LABS: ANION GAP 8 (5-19); CARBON DIOXIDE 29 mmol/L (22-30); CHLORIDE 101 mmol/L (98-107); POTASSIUM 4.4 mmol/L (3.6-5.0)
[2019-11-15 13:37] LABS: CREATININE URINE 233.2 mg/dL (Not Estab.); MICROALBUMIN URINE 29.1 ug/mL (Not Estab.)
== END ==
LOC: OD 08:39
PROVIDERS: ATTEND Specialist
DX: E11.65 Type 2 diabetes mellitus with hyperglycemia (principal); E78.2 Mixed hyperlipidemia; I10 Essential (primary) hypertension; J45.20 Mild intermittent asthma, uncomplicated; Z79.899 Other long term (current) drug therapy
CPT/HCPCS: 36415; 80061; 82043; 82570; 83036; 83735; 84443

== ENCOUNTER → 2020-03-19 | Outpatient (CLI) | payer MEDICARE, MEDICAID ==
--- NOTE | 2020-03-19 12:29 | WOMENS IMAGING REPORT ---
EXAM DESCRIPTION: BILAT DIAGNOSTIC MAMMO W/CAD; U/S BREAST UNILATERAL, COMPL IMAGES COMPLETED DATE/TIME: 03/19/2020 11:21 am; 03/19/2020 11:45 am REASON FOR STUDY: N64.59 OTHER SIGNS AND SYMPTOMS IN BREAST; LT BREAST LUMP N64.59 OTHER SIGNS AND SYMPTOMS IN BREAST N63.20 UNSPECIFIED LUMP IN THE LEFT BREAST, UNSPECIFIED QUAD A31.0 PULMONARY MYC OBACTERIAL INFECTION COMPARISON: None. EXAM PARAMETERS: Standard craniocaudal and mediolateral oblique views of each breast recorded using digital acquisition and breast tomosynthesis. True lateral and cone compression views left breast. Read with the assistance of CAD: .[employer] Assistant Version 9.2 LIMITATIONS: None. FINDINGS: RIGHT BREAST MASSES: No suspicious masses. CALCIFICATIONS: No new or suspicious calcifications. ARCHITECTURAL DISTORTION: None. ASYMMETRY: None noted. OTHER: No other significant findings. LEFT BREAST MASSES: Smooth mass at 3 o'clock middle 3rd corresponding to palpable marker. CALCIFICATIONS: No new or suspicious calcifications. ARCHITECTURAL DISTORTION: None. ASYMMETRY: None noted. OTHER: No other significant finding. Ultrasound demonstrates subcutaneous well-circumscribed 13 x 6 x 14 mm isoechoic nodule with no inter nal flow on color Doppler. Possibly sebaceous cyst. IMPRESSION: Dermatologic lesion left breast. BREAST DENSITY: b. There are scattered areas of fibroglandular density. BIRAD: ASSESSMENT: 2 Benign findings. RECOMMENDATION: RECOMMENDED FOLLOW UP: Clinical follow-up. SPECIFIC INTERVENTION/IMAGING/CONSULTATION RECOMMENDED:No additional intervention/ imaging/consultati on needed at this time. COMMUNICATION:The imaging findings were not discussed with the patient. Her referring provider has be en notified of the findings. COMMENT: The patient has been notified of the results by letter per MQSA requirements. Additional no tification policies are in place for contacting patient with suspicious or incomplete findings. Quality ID #225: The [employer] recommends an annual screening mammogram for women aged 40 years or over. This facility utilizes a reminder system to ensure that all patients receive reminder letters, and/or direct phone calls for appointments. This includes reminders for routine scr eening mammograms, diagnostic mammograms, or other Breast Imaging Interventions when appropriate. Th is patient will be placed in the appropriate reminder system. TECHNICAL DOCUMENTATION: FINDING NUMBER: (1) ASSESSMENT: (1) JOB ID: [id number] [employer]- All Rights Reserved Reading location - IP/workstation name: [email or web address]
--- NOTE | 2020-03-19 12:29 | WOMENS IMAGING REPORT ---
EXAM DESCRIPTION: BILAT DIAGNOSTIC MAMMO W/CAD; U/S BREAST UNILATERAL, COMPL IMAGES COMPLETED DATE/TIME: 03/19/2020 11:21 am; 03/19/2020 11:45 am REASON FOR STUDY: N64.59 OTHER SIGNS AND SYMPTOMS IN BREAST; LT BREAST LUMP N64.59 OTHER SIGNS AND SYMPTOMS IN BREAST N63.20 UNSPECIFIED LUMP IN THE LEFT BREAST, UNSPECIFIED QUAD A31.0 PULMONARY MYC OBACTERIAL INFECTION COMPARISON: None. EXAM PARAMETERS: Standard craniocaudal and mediolateral oblique views of each breast recorded using digital acquisition and breast tomosynthesis. True lateral and cone compression views left breast. Read with the assistance of CAD: .[employer] Content Director Technical Version 9.2 LIMITATIONS: None. FINDINGS: RIGHT BREAST MASSES: No suspicious masses. CALCIFICATIONS: No new or suspicious calcifications. ARCHITECTURAL DISTORTION: None. ASYMMETRY: None noted. OTHER: No other significant findings. LEFT BREAST MASSES: Smooth mass at 3 o'clock middle 3rd corresponding to palpable marker. CALCIFICATIONS: No new or suspicious calcifications. ARCHITECTURAL DISTORTION: None. ASYMMETRY: None noted. OTHER: No other significant finding. Ultrasound demonstrates subcutaneous well-circumscribed 13 x 6 x 14 mm isoechoic nodule with no inter nal flow on color Doppler. Possibly sebaceous cyst. IMPRESSION: Dermatologic lesion left breast. BREAST DENSITY: b. There are scattered areas of fibroglandular density. BIRAD: ASSESSMENT: 2 Benign findings. RECOMMENDATION: RECOMMENDED FOLLOW UP: Clinical follow-up. SPECIFIC INTERVENTION/IMAGING/CONSULTATION RECOMMENDED:No additional intervention/ imaging/consultati on needed at this time. COMMUNICATION:The imaging findings were not discussed with the patient. Her referring provider has be en notified of the findings. COMMENT: The patient has been notified of the results by letter per MQSA requirements. Additional no tification policies are in place for contacting patient with suspicious or incomplete findings. Quality ID #225: The [employer] recommends an annual screening mammogram for women aged 40 years or over. This facility utilizes a reminder system to ensure that all patients receive reminder letters, and/or direct phone calls for appointments. This includes reminders for routine scr eening mammograms, diagnostic mammograms, or other Breast Imaging Interventions when appropriate. Th is patient will be placed in the appropriate reminder system. TECHNICAL DOCUMENTATION: FINDING NUMBER: (1) ASSESSMENT: (1) JOB ID: [id number] [employer]- All Rights Reserved Reading location - IP/workstation name: [email or web address]
--- NOTE | 2020-03-19 12:51 | RADIOLOGY REPORT (SQ) ---
EXAM DESCRIPTION: CT CHEST WITHOUT IMAGES COMPLETED DATE/TIME: 03/19/2020 10:34 am REASON FOR STUDY: A31.0 PULMONARY MYCOBACTERIAL INFECTION N64.59 OTHER SIGNS AND SYMPTOMS IN BREAST N63.20 UNSPECIFIED LUMP IN THE LEFT BREAST, UNSPECIFIED QUAD A31.0 PULMONARY MYCOBACTERIAL INFECTI ON COMPARISON: 01/17/2019 TECHNIQUE: CT scan performed of the chest without intravenous contrast. Images reviewed with lung, soft tissue and bone windows. Reconstructed coronal and sagittal MPR images reviewed. All images st ored on PACS. All CT scanners at this facility use dose modulation, iterative reconstruction, and/or weight based d osing when appropriate to reduce radiation dose to as low as reasonably achievable (ALARA). [facility]: Dose Right [facility]: CareDose [facility]: Dose Right [facility]: Teradose 4D [facility]: Smart [employer] RADIATION DOSE: CT Rad equipment meets quality standard of care and radiation dose reduction techniq ues were employed. CTDIvol: 24.2 mGy. DLP: 964 mGy-cm. mGy. LIMITATIONS: No technical limitations. FINDINGS: LUNGS AND PLEURA: No masses, infiltrates, or pneumothorax. No pleural effusions or pleura l calcifications. HILAR AND MEDIASTINAL STRUCTURES: No identified masses or abnormal nodes. No obvious aneurysm. HEART AND VASCULAR STRUCTURES: No aneurysm. No pericardial effusion. UPPER ABDOMEN: Stable small right adrenal adenoma. THYROID AND OTHER SOFT TISSUES: No masses. No adenopathy. BONES: No significant finding. HARDWARE: None in the chest. OTHER: No other significant findings. IMPRESSION: No acute cardiopulmonary findings. No interval change. Stable small right adrenal linda christiano. TECHNICAL DOCUMENTATION: JOB ID: [id number] Quality ID # [id number]: Final reports with documentation of one or more dose reduction techniques (e.g., Au tomated exposure control, adjustment of the mA and/or kV according to patient size, use of iterative reconstruction technique) 2010 [employer]- All Rights Reserved Reading location - IP/workstation name: [email or web address]
== END ==
LOC: WI 10:08
PROVIDERS: ATTEND Registered Nurse
DX: N64.59 Other signs and symptoms in breast (principal); N63.20 Unspecified lump in the left breast, unspecified quadrant; Z80.3 Family history of malignant neoplasm of breast; A31.0 Pulmonary mycobacterial infection
CPT/HCPCS: 71250; 76641; 77066

== ENCOUNTER → 2020-05-22 | Outpatient (CLI) | payer MEDICARE, MEDICAID | LOC: OD 10:33 | PROVIDERS: ATTEND Registered Nurse | DX: E66.01 Morbid (severe) obesity due to excess calories (principal); E11.65 Type 2 diabetes mellitus with hyperglycemia; A31.0 Pulmonary mycobacterial infection | CPT/HCPCS: 36415; 82533; 83036; 87015; 87116; 87206 ==